=== PATIENT | male | born 1975 | race Two or more races ===

== ENCOUNTER 2022-12-07 15:12 | Emergency (ER) | payer MEDICAID, SELFPAY ==
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
[2022-12-07 15:37] VITALS: BP 145/92; PULSE 101; RESP 18; TEMP 36.8; O2SAT 96; BMI 33.4
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
[2022-12-07 17:34] VITALS: BP 134/72; PULSE 94; RESP 17; TEMP 37.1; O2SAT 97
--- NOTE | 2022-12-07 18:32 | ECG_ITS ---
Test Reason : SYNCOPE Blood Pressure : / mmHG Vent. Rate : 096 BPM Atrial Rate : 096 BPM P-R Int : 140 ms QRS Dur : 076 ms QT Int : 338 ms P-R-T Axes : 043 017 027 degrees QTc Int : 427 ms Normal sinus rhythm Normal ECG When compared with ECG of 06-APR-2014 23:01, ST no longer elevated in Anterior leads Referred By: Sonu Pyle Electronically Signed By:PORSHA TIRADO MD
[2022-12-07 18:59] LABS: MANUAL DIFF FLAG NO
[2022-12-07 19:00] LABS: Basophils Absolute Auto 0.1 X10*3/uL (0.0-0.2); Basophils Percent Auto 0.6 % (0-2); Eosinophils Percent Auto 0.3 % (0-4); Hematocrit 42.6 % (42.0-52.0); Hemoglobin 14.7 g/dl (14.0-18.0); Imm Gran Abs Auto 0.03 X10*3/uL (0.00-0.03); Imm Gran Pct Auto 0.3 % (0.0-0.4); Lymphocytes Absolute Auto 1.7 X10*3/uL (1.2-4.9); Lymphocytes Percent Auto 16.8 % (20-40); Mean Corpuscular HGB Conc 34.5 g/dl (31.0-36.0); Mean Corpuscular Volume 89.9 fL (80.0-98.0); Mean Platelet Volume 10.3 fL (9.4-12.4); Monocytes Absolute Auto 0.7 X10*3/uL (0.1-1.2); Monocytes Percent Auto 6.7 % (2-11); Neutrophils Absolute Auto 7.5 x10*3/uL (2.0-8.3); Neutrophils Percent Auto 75.3 % (45-73); Platelet Count 325 X10*3/uL (160-400); Red Blood Count 4.74 X10*6/uL (4.60-5.80); Red Cell Distribution Width 12.4 % (11.0-16.0)
[2022-12-07 19:12] LABS: Anion Gap 13 (12-20); Blood Urea Nitrogen 11 mg/dL (9-16); Calcium 9.6 mg/dL (8.4-10.2); Carbon Dioxide 25 mmol/L (22-29); Chloride 106 mmol/L (96-108); Estimated Glomerular Filt Rate > 60; Glucose Random 100 mg/dL (60-115); Potassium 4.2 mmol/L (3.3-5.1); Sodium 140 mmol/L (135-145)
[2022-12-07] MEDS: oxyCODONE HCl Immed Release 5 MG TABLET PO (19:15)
--- NOTE | 2022-12-07 19:30 | PC.NURSE ---
I assumed care of the pt at 1900. Pt is resting in bed at this time. A&Ox4, GCS 15. Pt as lacerations and swelling on the right side of the face and on his knuckles. Pt complaining of 8/10 pain, medicated per SEP.
[2022-12-07 19:46] LABS: Troponin-I High Sensitivity < 2.7 ng/L (<3.5-35.0)
== END 2022-12-07 20:33 | disposition home or self-care (01) ==
PROVIDERS: Emergency Provider Emergency Medicine
DX: S00.83XA Contusion of other part of head, initial encounter (principal); S60.222A Contusion of left hand, initial encounter; S60.221A Contusion of right hand, initial encounter; R51.9 Headache, unspecified; M54.2 Cervicalgia; R07.81 Pleurodynia; M25.561 Pain in right knee; V29.91XA Electric (assisted) bicycle rider (driver) (passenger) injured in unspecified traffic accident, initial encounter; Y93.9 Activity, unspecified; Y92.410 Unspecified street and highway as the place of occurrence of the external cause; Y99.9 Unspecified external cause status; Z79.899 Other long term (current) drug therapy
CPT/HCPCS: 36415; 70450; 70486; 71045; 72125; 73120; 73562; 80048; 84484; 85025; 93005; 99284; 99285

== ENCOUNTER 2023-04-17 15:28 | Outpatient (REF) | payer MEDICAID, SELFPAY | END 2023-04-17 15:29 | disposition home or self-care (01) | LOC: HO.HHCL 15:28 | PROVIDERS: Visit Provider Emergency Medicine | DX: R21 Rash and other nonspecific skin eruption (principal) | CPT/HCPCS: 36415; 86617; 86618 ==

== ENCOUNTER 2023-04-21 15:36 | Outpatient (REF) | payer MEDICAID, SELFPAY | END 2023-04-21 15:37 | disposition home or self-care (01) | LOC: HO.HHCL 15:36 | PROVIDERS: Visit Provider Nurse Practitioner Family | DX: Z13.89 Encounter for screening for other disorder (principal) ==

== ENCOUNTER 2023-09-02 15:05 | Outpatient (REF) | payer MEDICAID, SELFPAY ==
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
--- NOTE | ~2023-09-02 | XR_ITS ---
EXAMINATION: XR SHOULDER, RIGHT CLINICAL INFORMATION: Right arm/shoulder pain. COMPARISON: Radiograph right shoulder 08/12/2013. TECHNIQUE: Four views of the right shoulder. FINDINGS: The bones and soft tissues are normal. No fracture. Glenohumeral and acromioclavicular alignment is anatomic with normal joint space. No abnormal soft tissue calcifications. XR/XR shoulder RT min 2V IMPRESSION: Normal right shoulder.
--- NOTE | ~2023-09-02 | XR_ITS ---
EXAMINATION: XR CERVICAL SPINE CLINICAL INFORMATION: Neck pain. COMPARISON: CT cervical spine 12/07/2022. TECHNIQUE: 3 views of the cervical spine were obtained. FINDINGS: No evidence of acute compression deformity or subluxation. Moderate to severe intervertebral disc height loss at C5-C6 and C6-C7. [id number] uncovertebral hypertrophy/facet arthropathy at same levels. Evaluation of neural foraminal encroachment and central canal narrowing cannot be assessed with the provided views. No prevertebral soft tissue thickening. Included lung apices are clear. XR/XR cervical spine 3V IMPRESSION: 1. No acute compression deformity or malalignment. 2. Moderate to severe cervical spondylosis at C5-C6 and C6-C7.
== END 2023-09-02 15:06 | disposition home or self-care (01) ==
LOC: HO.HHCX 15:05
PROVIDERS: Visit Provider Internal Medicine
DX: M79.601 Pain in right arm (principal); S22.000D Wedge compression fracture of unspecified thoracic vertebra, subsequent encounter for fracture with routine healing; M54.10 Radiculopathy, site unspecified
CPT/HCPCS: 72040; 72070; 73030

== ENCOUNTER 2024-09-11 19:00 | Outpatient (REF) | payer MEDICAID, SELFPAY ==
--- NOTE | ~2024-09-11 | MR_ITS ---
EXAMINATION: MR CERVICAL SPINE WITHOUT CONTRAST CLINICAL INFORMATION: Neck pain. Radiculopathy. COMPARISON: Correlated to CT dated December 07, 2022. TECHNIQUE: MRI of the cervical spine was obtained using routine sequences without contrast. FINDINGS: Craniocervical junction is intact. No bone marrow STIR signal abnormality. Marginal osteophyte formation and disc desiccation, subchondral irregularity, C5-6 and C6-7 levels. Posterior marginal osteophyte formation C4-5, C5-6 and C6-7 levels. Mild buckling deformity of the dorsal aspect of the thecal sac at C6-7 likely related to ligamentum flavum hypertrophy. Grade 1 retrolisthesis C5-6 and C6-7 levels. Reverse curvature apex at C5. Cervical spinal cord signal is normal. C2-3: No disc herniation. No neuroforamina stenosis. C3-4: Broad-based disc osteophyte complex formation. Facet joint hypertrophy. No cord compression. Bilateral neuroforamina narrowing. C4-5: Broad-based disc osteophyte complex formation abutting the cord. No cord compression. Facet joint hypertrophy. Bilateral neuroforamina stenosis, right greater than the left side. C5-6: Broad-based disc osteophyte complex formation abutting the cord. No cord compression. Facet joint hypertrophy. Right neuroforamina and stenosis. C6-7: Broad-based disc osteophyte consummation. No cord compression. Bilateral neuroforamina narrowing/stenosis. C7-T1: No disc herniation. No neuroforamina stenosis. No prevertebral compartment hematoma, mass or fluid collection. Flow-void signal within the main vessels is normal. Left vertebral artery slightly dominant. Nonspecific prominent cervical lymph nodes. MR/MR cervical spine wo con IMPRESSION: Multilevel cervical spondylosis resulting in grade 1 retrolisthesis C5-6 and C6-7 levels reverse curvature apex at C5 and central spinal canal stenosis from C4 to C6 and bilateral neuroforamina narrowing more conspicuous at C4-5 and C6-7 levels. No cord compression, cord edema and or myelopathy. Electronically signed by: Aroldo Crabtree MD 09/12/2024 08:04 AM [facility]
--- OUTSIDE RECORDS SUMMARY | 2024-09-11 19:03 | XMS_ITS | Encounter Summary ---
Author Organization [employer] Address [address] [place] [address] Care Team Providers Care Safety Grooving Machine Operator Name Role Phone Felecia Good MD Primary Care Pro vider Reason for Visit * Reason Comments Med Refill Encounter Details Date Type Department Care Team (Late Contact Info) Description 01/01/2023 Refill [facility] [address], [place] [phone] Kenny Han, DANIA Rash Social History Tobacco Use Types Packs/Day Years Used Date Smoking Tobacco: Former Cigarettes Passive Smoke Exposure: Never Smokeless Tobacco: Never Alcohol Use Standard Drinks/Week Comments Never 0 (1 standard drink = 0.6 oz pur e alcohol) Depression Answer Date Recorded Patient Health Questionnaire-9 Score 16 12/09/2022 Depression Answer Date Recorded Patient Health Questionnaire-2 Score 2 12/09/2022 Sex and Gender Information Value Date Recorded Sex Assigned at Male 05/12/2022 10:18 AM EDT Legal Sex Male 10:18 AM EDT Gender Identity Male 05/12/2022 10:18 AM EDT Sexual Orientation Choose not to disclose 2021 10:18 AM EDT COVID-19 Exposure Response Date Recorded In the last 10 days, have yo u been in contact with someone who was confirmed or suspected to have Coronavirus/COVID-19? No / Unsure 12/09/2022 9:13 AM EDT documented as of this encounter Plan of Treatment Upcoming Encounters Date Type Department Care Team ([facility] Contact Info) Description 11/02/2024 2:15 PM EDT Office Visit [facility] [address], [place] [phone] Felecia Good MD [address] [place] [address] documented as of this encounter Visit Diagnoses Diagnosis Rash Rash and other nonspecific skin eruption documented in this encounter Additional Health Concerns Assessment Noted Time PHQ-9 Depression Total Score: 16 12/09/ 023 9:23 AM EDT documented as of this encounter Care Teams Safety Grooving Machine Operator Relationship Specialty Start Date End Date Felecia Good MD [address] [place], [place] [phone] PCP - General Internal Medicine 12/05/22 documented as of this encounter
--- OUTSIDE RECORDS SUMMARY | 2024-09-11 19:03 | XMS_ITS | Encounter Summary ---
Author Organization [facility] Address [address] [place] [address] Care Team Providers Care Skid Strapper Name Role Phone Francine Andrews CERTIFIED SUBSTANCE ABUSE COUNSELOR Primary Care Provider [phone]- [phone] Felecia Good MD Primary Care Pro vider Encounter Details Date Type Department Care Team (Late st Contact Info) Description 11/20/2022 Abstract [facility] [address] [place] [address] Gaston Gongaris [address] [place] [address] Social History Tobacco Use Types Packs/Day Years Used Date Smoking Tobacco: Former Cigarettes Passive Smoke Exposure: Never Smokeless Tobacco: Never Alcohol Use Standard Drinks/Week Comments Never 0 (1 standard drink = 0.6 oz pur e alcohol) Sex and Gender Information Value Date Recorded [...] suspected to have Coronavirus/COVID-19? No / Unsure 11/17/2022 10:55 AM EDT documented as of this encounter Plan of Treatment Upcoming Encounters Date Type Department Care Team (Late Contact Info) Description 11/02/2024 2:15 PM EDT Office Visit [facility] [address] [place] [address] Felecia Good MD [address] [place], [place] [phone] documented as of this encounter Visit Diagnoses Not on filedocumented in this encounter Care Teams Skid Strapper Relationship Specialty Start Date End Date Francine Andrews FNP PCP - General Family Medicine 01/10/22 12/04/22 Felecia Good MD [address] [place] [phone] PCP - General Internal Medicine 12/05/22 documented as of this encounter
--- OUTSIDE RECORDS SUMMARY | 2024-09-11 19:03 | XMS_ITS | Clinical Summary ---
Author Organization [employer] Address 75 [facility] 7t [place] [address] Care Team Providers Care Housing Development Specialist Name Role Phone Felecia Good MD Primary Care Pro vider Allergies No known active allergies Medications Blood Pressure Monitor kitIndications: Syncope, unspecified syncope type,Primary hypertension Use as directed 3x/week 1 kit 12/10/19 23 Active fluocinolone (DermOtic) 0.01 % ear dropsIndication s:Chronic eczematous otitis externa of both ears Administer 5 drops into each ear 2 times daily. 30 mL 06/15/20 23 Active fluticasone-mike meterol (Advair) 230-21 MCG/ACT inhaler Inhale 2 puffs in the morning and at bedtime. Rinse mouth with water after use to reduce aftertaste and incidence of candidiasis. Do not swallow. 12 g 11 11/10/19 24 2024 Active naloxone (Narcan) 4 mg/0.1 mL nasal spray Administer 1 spray (4 mg) into affected nostril(s) if needed for opioid reversal. May repeat every 2-3 minutes if needed, alternating nostrils, until medical assistance becomes available. 2 each 2 11/10/19 24 2024 Active Blood Pressure kit 1 each 2 times daily. 1 kit 01/20/20 24 2024 Active divalproex (Depakote ER) 250 MG 24 hr tabletIndicatio ns:Schizophreni a, unspecified type (CMS/HCC) TAKE 1 TABLET BY MOUTH EVERY DAY, DO NOT BREAK, CRUSH, DISSOLVE OR CHEW 30 tablet 2 03/02/20 24 Active Ventolin HFA 108 (90 Base) MCG/ACT inhaler INHALE 2 PUFFS BY MOUTH EVERY 6 HOURS NEEDED FOR WHEEZING 18 g 3 05/30/20 24 Active traZODone (Desyrel) 50 MG tabletIndicatio ns:Schizophreni a, unspecified type (CMS/HCC) TAKE 1/2 TABLET BY MOUTH EVERY DAY AT BEDTIME 15 tablet 3 06/03/20 24 Active lisinopril 10 MG tablet TAKE 1 TABLET BY MOUTH EVERY DAY 90 tablet 08/02/19 25 Active naproxen (Naprosyn) 500 MG tablet TAKE 1 TABLET BY MOUTH TWICE DAILY 30 tablet 08/26/19 25 Active betamethasone valerate (Valisone) 0.1 % ointment APPLY TOPICALLY TO AFFECTED AREA(S) TWICE DAILY IN THE MORNING AND AT BEDTIME NEEDED FOR ITCHING 45 g 08/26/19 25 Active lidocaine (Lidoderm) 5 % patch Apply 1 patch topically Once per day. Remove & discard patch within 12 hours or as directed by MD. 30 patch 2 09/07/19 25 2025 Active gabapentin (Neurontin) 100 MG capsule Take 1 capsule (100 mg) by mouth if needed in the morning, at noon, and at bedtime (pain). 45 capsule 1 09/07/19 25 2025 Active acetaminophen (Tylenol) 500 MG tabletIndicatio ns:Necrosis of dental pulp Take 1 tablet (500 mg) by mouth every 6 (six) hours if needed for mild pain for up to 20 doses. 20 tablet 09/07/19 25 Active acetaminophen (Tylenol) 500 MG tabletIndicatio ns:Necrosis of dental pulp Take 1 tablet (500 mg) by mouth every 6 (six) hours if needed for mild pain for up to 20 doses. 20 tablet 07/14/19 24 2024 Discontinued(R eorder (will not trigger notification to Pharmacy)) betamethasone valerate (Valisone) 0.1 % ointment APPLY TOPICALLY TO AFFECTED AREA(S) TWICE DAILY IN THE MORNING AND AT BEDTIME NEEDED FOR ITCHING 45 g 05/27/20 24 2024 Discontinued(R eorder (will not trigger notification to Pharmacy)) naproxen (Naprosyn) 500 MG tablet TAKE 1 TABLET BY MOUTH TWICE DAILY 30 tablet 07/27/19 25 2024 Discontinued Active Problems Problem Noted Date Diagnosed Date Asthma 11/10/2023 Skin rash 11/10/2023 Obesity (BMI 30-39.9) 11/10/2023 Health care maintenance 11/10/2023 Radiculopathy 09/02/2023 Primary hypertension 12/09/2022 Assessment & Plan (12/09/2022 10:19 AM EDT): fairely controlled, needs to FU with PCP counseled to check BP at home at least twice per week and FU with PCP Acute otitis externa of right ear 12/09/2022 Assessment & Plan (12/09/2022 10:19 AM EDT): Keep the area clean and dry avoid poking in the ear use cortisporin TC ear drops x 1 week. Periodontal disease 11/05/2022 Dental calculus 11/05/2022 Schizophrenia 05/03/2013 Generalized anxiety disorder 02/22/2013 History of substance abuse 01/18/2013 Chronic back pain 12/07/2012 Resolved Problems Problem Noted Date Diagnosed Date Resolved Date Thoracic compression fracture 12/03/2012 11/10/2023 Assessment & Plan (09/02/2023 3:43 PM EST): Old. Order Xray Encounters Date Type Department Care Team Description 09/07/2024 9:20 AM EST Office Visit [facility] [address] [place] [address] Louie Mann MD Neck pain (Primary Dx); Necrosis of dental pulp; Cervical radiculopathy 08/26/2024 Refill [facility] [address] [place] [address] Loraine Taylor ANP 08/26/2024 Refill [facility] [address] [place] [address] Felecia Good MD 08/02/2024 Refill [facility] [address] [place] [address] Felecia Good MD 07/27/2024 Refill [facility] [address] [place] [address] Felecia Good MD from Last 3 Months Immunizations Name Administration Dates Next Due Hep B, Adolescent or Pediatric 03/21/2008,2007,08/16/2006 Influenza, IIV3, injectable 06/06/2014,1 ,06/06/2008,04/16 MMR 06/15/2007 Pneumococcal Polysaccharide PPSV23 08/13/2006 TD (adult), 2 Lf tetanus tox oid, preservative free, adsorbed 08/13/2006 Family History Medical History Relation Name Comments arm cancer Brother Prostate cancer Father CAD,depression,anxiety Mother Schizophrenia Mother's Brother colon ca -60s Mother's Brother Relation Name Status Comments Brother Father Mother Mother's Brother Social History Tobacco Use Types Packs/Day Years Used Date Smoking Tobacco: Former Cigarettes Passive Smoke Exposure: Past Smokeless Tobacco: Never Tobacco Cessation:Counseling Given: Not Answered Comments:Started tobacco smoking at 17 y of age and stopped at his 40 y of age -stopped 8 y ago, smoke for 23 y Used to smoke 13 cig a day . PQT calc a year 15 Alcohol Use Standard Drinks/Week Comments Never 0 (1 standard drink = 0.6 oz pur e alcohol) Depression Answer Date Recorded Patient Health Questionnaire-9 Score 2 11/10/2023 Patient Health Questionnaire-9 Score 2 11/10/2023 Last PHQ-9: Questionnaire Data Not on file 0 11/10/2023 Housing Stability Answer Date Recorded What is your housing situation today? I have goran lara 05/07/[address] you li ve. Do you have problems with any of the following? None of the above 05/07/2023 Food Insecurity Answer Date Recorded Within the past 12 months, y ou worried that your food would run out before you got money to buy more: Often true 05/07/2023 Within the past 12 months,th e food you bought just didn't last and you didn't have enough money to get more: Often true Transportation Answer Date Recorded In the past 12 months, has l ack of transportation kept you from medical appts, meetings, work or from getting things needed for daily living? Yes, it has kept me from non-medical meetings, work, or getting things that I need 04/20/2023 Utilities Answer Date Recorded In the past 12 months, has t he electric, gas, oil or water company threatened to shut off services in your home? No 05/07/2023 Depression Answer Date Recorded Patient Health Questionnaire-2 Score 1 11/10/2023 Sex and Gender Information Value Date Recorded Sex Assigned at Male 05/12/2022 10:18 AM EDT Legal Sex Male 10:18 AM EDT Gender Identity Male 05/12/2022 10:18 AM EDT Sexual Orientation Choose not to disclose 2021 10:18 AM EDT Last Filed Vital Signs Vital Sign Reading Time Taken Comments Blood Pressure 124/80 09/07/2024 9:14 AM EST Pulse 81 09/07/2024 9:14 AM EST Temperature 36.9 ??C (98.5 ??F) 09/07/2024 9:14 AM ES T Respiratory Rate 18 09/07/2024 9:14 AM EST Oxygen Saturation 98% 09/07/2024 9:14 AM EST Inhaled Oxygen Concentration - - Weight 125 kg (276 lb) 09/07/2024 9:14 AM EST Height 188 cm (6' 2 ) 01/20/2024 8:42 AM EDT Body Mass Index 35.44 01/20/2024 8:42 AM EDT Plan of Treatment Upcoming Encounters Date Type Department Care Team (Late st Contact Info) Description 11/02/2024 2:15 PM EDT Office Visit [facility] [address] [place] [phone] Felecia Good MD [address] [place] [address] Health Maintenance Due Date Last Done Comments CT Colonography 1975 Colonoscopy 1975 Colorectal Cancer Screening 1975 FIT DNA/Cologuard 1975 FIT 1975 FOBT 1975 HIV Screening 1975 Sigmoidoscopy 1975 Alcohol/Substance Use Screening 1987 Family Planning (PISQ) 1990 Hepatitis A Vaccines (1 of 2 - Risk 2-dose series) 1994 Hepatitis B Vaccines (1 of 3 - 19+ 3-dose series) 1994 03/21/2008, 10/18/2007, 08/16/2006 DTaP/Tdap/Td Vaccines (1 - Tdap) 08/14/2006 08/13/2006 Pneumococcal Vaccine: Pediatrics (0 to 5 Years) and At-Risk Patients (6 to 49) Years) (2 of 2 - PCV) 08/13/2007 08/13/2006 Dental Oral Exam 05/08/2023 11/05/2022 Dental Prophylaxis 05/08/2023 11/05/2022 Dental X-Ray: Bitewings 11/07/2023 11/05/2022 SDOH Screening 12/10/2023 12/09/2022 COVID-19 Vaccine (2 - season) 2024 08/17/2021 Influenza Vaccine (#1) 2024 4, 04/18/2010, 06/06/2008, Additional history exists Depression Screening 11/09/2024 11/10/2023, 11/10/19 24 Zoster Vaccines (1 of 2) 2025 Tobacco Screening 09/07/2025 09/07/2024 Lipid Panel 11/02/2025 11/02/2020 Dental X-Ray: Full Mouth 07/15/2026 07/14/2023, 10/12 RSV Patients and Patients Aged 60 years or older (1 - 1-dose 75+ series) 2050 Hepatitis C Screening Completed 11/02/2020 HIB Vaccines Aged Out No longer eligi ble based on patient's age to complete this topic HPV Vaccines Aged Out No longer eligi ble based on patient's age to complete this topic IPV Vaccines Aged Out No longer eligi ble based on patient's age to complete this topic Meningococcal Vaccine Aged Out No brendan altagracia eligible based on patient's age to complete this topic RSV under 20 months Aged Out No longe r eligible based on patient's age to complete this topic Rotavirus Vaccines Aged Out No longer eligible based on patient's age to complete this topic Procedures Procedure Name Priority Date/Time Associated Diagnosis Comments PANORAMIC RADIOGRAPHIC IMAGE Routine 07/14/2023 8:45 AM EST Necrosis of dental pulp PERIODIC ORAL EVALUATION - ESTABLISHED PATIENT Routine 11/05/2022 9:00 AM EDT PROPHYLAXIS - ADULT Routine 11/05/2022 8 :00 AM EDT Periodontal disease Dental calculus INTRAORAL - COMPLETE SERIES OF RADIOGRAPHIC IMAGES Routine 11/05/2022 8:00 AM EDT Periodontal disease Dental calculus ZZZ HISTORICAL HEPATITIS C AB W/REFL TO HCV RNA, QN, PCR Routine 11/02/2020 8:01 AM EDT LIPID PANEL, STANDARD Routine 11/02/2020 8:01 AM EDT from Last 3 Months or Most Recently Relevant to Health Maintenance Results * HEPATITIS C AB W/REFL TO HCV RNA, QN, PCR (11/02/2020 8:01 AM EDT) Pathologist [facility] HEPATITIS C ANTIBODY NON-REACT ALBERTO NON-REACT ALBERTO [facility] INDEX 0.03 <1.00 [facility] Comment: ?? HCV antibody was non-reactive. There is no laboratory ?? evidence of HCV infection. ?? In most cases, no further action is required. However, if recent HCV exposure is suspected, a test for HCV RNA (test code 98499) is suggested. ?? For additional information please refer to http://education.[employer]/faq/JHW19e9 (This link is being provided for informational/ educational purposes only.) ?? 11/02/2020 8:01 AM EDT us Historical Provider HISTORICAL/NON ORDERABLE LABS Final Result [facility] [address] * (ABNORMAL) LIPID PANEL, STANDARD (11/02/2020 8:01 AM EDT) Chol/HDLC Ratio 5.5(H) <5.0 (calc) [facility] Cholesterol, Total 188 <200 mg/dL [facility] HDL Cholesterol 34(L) > OR = 40 mg/dL [facility] LDL Cholesterol 134(H) mg/dL (calc) [facility] Comment: Reference range: <100 ?? Desirable range <100 mg/dL for primary prevention; ?? <70 mg/dL for patients with CHD or diabetic patients ?? with > or = 2 CHD risk factors. ?? LDL-C is now calculated using the J Carlos ?? calculation, which is a validated novel method providing ?? better accuracy than the Friedewald equation in the ?? estimation of LDL-C. ?? Markie PONCE et al. ABBY. 2013;310(19): 9136-2854 ?? (http://education.[employer]/faq/FZX169) Non-HDL Cholesterol 154(H) <130 mg/dL (calc) [facility] Comment: For patients with diabetes plus 1 major ASCVD risk ?? factor, treating to a non-HDL-C goal of <100 mg/dL ?? (LDL-C of <70 mg/dL) is considered a therapeutic ?? option. Triglycerides 92 <150 mg/dL [facility] 11/02/2020 8:01 AM EDT us Historical Provider LAB BLOOD ORDERABLES Lissa guadarrama Result [facility] [address] from Last 3 Months or Most Recently Relevant to Health Maintenance [facility] Care Teams Housing Development Specialist Relationship Specialty Start Date End Date Felecia Good MD [address] [place] [phone] PCP - General Internal Medicine 12/05/22
--- OUTSIDE RECORDS SUMMARY | 2024-09-11 19:03 | XMS_ITS | Encounter Summary ---
Author Organization [employer] Address 75 [facility] 7t [place] [address] Care Team Providers Care Accounts Payable Processor Name Role Phone Felecia Good MD Primary Care Pro vider Reason for Visit * Reason Comments Med Refill Encounter Details Date Type Department Care Team ([facility] st Contact Info) Description 05/07/2023 Refill [facility] [address] [place], [place] [phone] Francine Andrews FNP [address] [place] [address] Dept [place] [address] Pain Social History Tobacco Use Types Packs/Day Years Used Date Smoking Tobacco: Former Cigarettes Passive Smoke Exposure: Never Smokeless Tobacco: Never Alcohol Use Standard Drinks/Week Comments Never 0 (1 standard drink = 0.6 oz pur e alcohol) Depression Answer Date Recorded Patient Health Questionnaire-9 Score 16 12/09/2022 Housing Stability Answer Date Recorded What is [...] not to disclose 2021 10:18 AM EDT documented as of this encounter Plan of Treatment Upcoming Encounters Date Type Department Care Team (Late st Contact Info) Description 11/02/2024 2:15 PM EDT Office Visit [facility] [address] [place] [phone] Felecia Good MD [address] [place] [phone] documented as of this encounter Visit Diagnoses Diagnosis Pain Generalized pain documented in this encounter Additional Health Concerns Assessment Noted Time PHQ-9 Depression Total Score: 16 023 9:23 AM EDT documented as of this encounter Care Teams Accounts Payable Processor Relationship Specialty Start Date End Date Felecia Good MD [address] [place] [phone] PCP - General Internal Medicine 12/05/22 documented as of this encounter
--- OUTSIDE RECORDS SUMMARY | 2024-09-11 19:03 | XMS_ITS | Encounter Summary ---
Author Organization [employer] [facility] Address 75 [facility] 7t [place] [address] Care Team Providers Care Environmental Journalist Name Role Phone Francine Andrews PASTE MAKER Primary Care Provider +1- [phone] Felecia Good MD Primary Care Pro vider Encounter Details Date Type Department Care Team (Late st Contact Info) Description 11/18/2022 Abstract [facility] [address] [place] [address] Gaston Gongaris [address] [place] [address] Social History Tobacco Use Types Packs/Day Years [...] Description 11/02/2024 2:15 PM EDT Office Visit [facility] [address] [place] [address] Felecia Good MD [address] [place], [place] [phone] documented as of this encounter Visit Diagnoses Not on filedocumented in this encounter Care Teams Environmental Journalist Relationship Specialty Start Date End Date Franicne Andrews FNP PCP - General Family Medicine 01/10/22 12/04/22 Felecia Good MD [address] [place] [address] PCP - General Internal Medicine 12/05/22 documented as of this encounter
--- OUTSIDE RECORDS SUMMARY | 2024-09-11 19:03 | XMS_ITS | Encounter Summary ---
Author Organization [employer] Address [address] [facility] [address] 7t [place] [address] Care Team Providers Care Hydrography Teacher Name Role Phone Felecia Good MD Primary Care Pro vider Reason for Visit * Reason Comments Med Refill Encounter Details Date Type Department Care Team ([facility] st Contact Info) Description 08/26/2024 Refill [facility] [address] [place], [place] [phone] Loraine Taylor, ANP [address] [place], [place] [phone] Social History Tobacco Use Types Packs/Day Years Used Date Smoking Tobacco: Former Cigarettes Passive Smoke Exposure: Past Smokeless Tobacco: Never Comments:Started tobacco smo aroldo at 17 y of age and stopped [...] Description 11/02/2024 2:15 PM EDT Office Visit [facility] [address] [place] [address] Felecia Good MD [address] [place] [address] documented as of this encounter Visit Diagnoses Not on filedocumented in this encounter Additional Health Concerns Assessment Noted Time PHQ-9 Depression Total Score: 2 11/10/19 24 10:19 AM EDT documented as of this encounter Care Teams Hydrography Teacher Relationship Specialty Start Date End Date Felecia Good MD [address] [place] [phone] PCP - General Internal Medicine 12/05/22 documented as of this encounter
--- OUTSIDE RECORDS SUMMARY | 2024-09-11 19:03 | XMS_ITS | Encounter Summary ---
Author Organization [employer] [facility] Address 75 [facility] 7t [place] [address] Care Team Providers Care Deflash And Wash Operator Name Role Phone Francine Andrews SENIOR JAVASCRIPT ENGINEER Primary Care Provider +1- [phone] Felecia Good MD Primary Care Pro vider Encounter Details Date Type Department Care Team (Late st Contact Info) Description 10/03/2022 Orders Only [facility] [address] [place], [place] [phone] Marlen Batista LPN Social History Tobacco Use Types Packs/Day Years Used Date Smoking Tobacco: Never Assessed Sex and Gender Information Value Date Recorded [...] Office Visit [facility] [address] [place], [place] [phone] Felecia Good MD [address] [place], [place] [phone] documented as of this encounter Procedures Procedure Name Priority Date/Time Associated Diagnosis Comments HIGH SENSITIVITY TROPONIN I Routine 12/07/2022 6:55 PM EDT CBC WITH AUTO DIFFERENTIAL Routine 12/07/2022 6:55 PM EDT BASIC METABOLIC PANEL Routine 12/07/2022 6:55 PM EDT documented in this encounter Results * High Sensitivity Troponin I (12/07/2022 6:55 PM EDT) TROPONIN I HIGH SENSITIVITY <2.7 <3.5 - 35.0 ng/L [facility] Comment:The Booth high sens itivity Troponin-I results should beused in conjunction with other diagnostic information suchas ECG, clinical observations and information, and patientsymptoms to aid in the diagnosis of [place]. 12/07/2022 6:55 PM EDT 12/07/2022 6:57 PM EDT [facility] External Provider LAB BLO OD ORDERABLES Final Result [facility] [address] [place] [phone] * Basic Metabolic Panel (12/07/2022 6:55 PM EDT) Sodium 140 135 - 145 mmol/L [facility] Potassium 4.2 3.3 - 5.1 mmol/L [facility] Chloride 106 96 - 108 mmol/L [facility] Carbon Dioxide 25 22 - 29 mmol/L [facility] Anion Gap 13 12 - 20 [facility] Urea Nitrogen (BUN) 11 9 - 16 mg/dL [facility] Creatinine, Serum 1.03 0.5 - 1.4 mg/dL [facility] Creatinine Clr Calc Pharmacy 121.0 [facility] Comment:eGFR (calculated fro m the MDRD study equation) and eCrCl(calculated from the Cockcroft-Gault equation) are based ondifferent parameters and may not yield comparable results.If eCrCl result is absurd, please check patient'sheight/weight. Estimated Glomerular Filt Rate >60 [facility] Comment:NOTE: For -Am erican individuals, multiply the result by 1.210.Chronic Kidney Disease: Estimated GFR < 60 mL/min/[id number] Kidney Disease: Estimated GFR < 15 mL/min/1.73m2 Glucose 100 60 - 115 mg/dL [facility] Calcium 9.6 8.4 - 10.2 mg/dL [facility] 12/07/2022 6:55 PM EDT 12/07/2022 6:57 PM EDT us [facility] External Provider LAB BLO OD ORDERABLES Final Result [facility] [address] [place] [address] [phone] * (ABNORMAL) CBC auto differential (12/07/2022 6:55 PM EDT) White Blood Count 10.0 4.8 - 10.8 X10*3/uL [facility] Red Blood Count 4.74 4.60 - 5.80 X10*6/uL [facility] Hemoglobin 14.7 14.0 - 18.0 g/dl [facility] Hematocrit 42.6 42.0 - 52.0 % [facility] Mean Corpuscular Volume 89.9 80.0 - 98.0 fL [facility] Mean Corpuscular Hemoglobin 31.0 27.0 - 33.0 pg [facility] Mean Corpuscular HGB Conc 34.5 31.0 - 36.0 g/dl [facility] Red Cell Distribution Width 12.4 11.0 - 16.0 % [facility] Platelet Count 325 160 - 400 X10*3/uL [facility] Mean Platelet Volume 10.3 9.4 - 12.4 fL [facility] Neutrophils Percent Auto 75.3(H) 45 - 73 % [facility] Imm Gran Pct Auto 0.3 0.0 - 0.4 % [facility] Lymphocytes Percent Auto 16.8(L) 20 - 40 % [facility] Monocytes Percent Auto 6.7 2 - 11 % [facility] Eosinophils Percent Auto 0.3 0 - 4 % [facility] Basophils Percent Auto 0.6 0 - 2 % [facility] NRBC Pct Auto 0.0 0.0 - 0.2 /100WBC [facility] Neutrophils Absolute Auto 7.5 2.0 - 8.3 x10*3/uL [facility] Imm Gran Abs Auto 0.03 0.00 - 0.03 X10*3/uL [facility] Lymphocytes Absolute Auto 1.7 1.2 - 4.9 X10*3/uL [facility] Monocytes Absolute Auto 0.7 0.1 - 1.2 X10*3/uL [facility] Eosinophils Absolute Auto 0.0 0.0 - 0.4 X10*3/uL [facility] Basophils Absolute Auto 0.1 0.0 - 0.2 X10*3/uL [facility] NRBC Abs Auto 0.000 0.0 - 0.012 X10*3/uL [facility] 12/07/2022 6:55 PM EDT 12/07/2022 6:57 PM EDT us [facility] External Provider LAB BLO OD ORDERABLES Final Result [facility] [address] [place] [address] [phone] documented in this encounter Visit Diagnoses Not on filedocumented in this encounter Care Teams Deflash And Wash Operator Relationship Specialty Start Date End Date Francine Andrews FNP PCP - General Family Medicine 01/10/22 12/04/22 Felecia Good MD [address] [place] [address] PCP - General Internal Medicine 12/05/22 documented as of this encounter
--- OUTSIDE RECORDS SUMMARY | 2024-09-11 19:03 | XMS_ITS | Encounter Summary ---
Author Organization [employer] [facility] Address 75 [facility] 7t [place] [address] Care Team Providers Care Dermatology Physician Assistant Name Role Phone Francine Andrews [facility] Primary Care Provider +1- [phone] Felecia Good MD Primary Care Pro vider Reason for Visit * Reason Onset Date Comments triage 07/15/2022 Encounter Details Date Type Department Care Team (Late Contact Info) Description 07/15/2022 Telephone [facility] [address] [place] [address] Francine Andrews FNP [address] [place] [address] Dept [place] [address] triage Social History Tobacco Use Types Packs/Day Years [...] suspected to have Coronavirus/COVID-19? No / Unsure 06/23/2022 4:00 PM EST documented as of this encounter Plan of Treatment Upcoming Encounters Date Type Department Care Team (Late Contact Info) Description 11/02/2024 2:15 PM EDT Office Visit [facility] [address] [place], [place] [phone] Felecia Good MD [address] [place] [address] documented as of this encounter Visit Diagnoses Not on filedocumented in this encounter Care Teams Dermatology Physician Assistant Relationship Specialty Start Date End Date Francine Andrews FNP PCP - General Family Medicine 01/10/22 12/04/22 Felecia Good MD [address] [place] [address] PCP - General Internal Medicine 12/05/22 documented as of this encounter
--- OUTSIDE RECORDS SUMMARY | 2024-09-11 19:03 | XMS_ITS | Encounter Summary ---
Author Organization [employer] [facility] Address [address] [facility] 7t [place] [address] Care Team Providers Care Coffin Maker Name Role Phone Felecia Good MD Primary Care Pro vider Reason for Referral * Consultation (Urgent) - Authorized Specialty Diagnoses / Procedures Referred By Hai t Referred To Contact Pain Medicine Diagnoses Neck pain Cervical radiculopathy Louie Mann MD [address] [place] [address] Phone: tel: fax: [address] Phone: tel: fax: Referral ID Status Reason Start Date Expiration Date Visits Requested Visits Authorized [id number] Authorized Specialty Services Required 09/07/2024 09/07/2025 6 6 * Imaging (Routine) - Authorized Specialty Diagnoses / Procedures Referred By Contac t Referred To Contact Radiology Diagnoses Neck pain Cervical radiculopathy Procedures MR Cervical Spine w/o Contrast Louie Mann MD [address] [place] [address] Phone: tel: fax: [address] Phone: tel: fax: Referral ID Status Reason Start Date Expiration Date V isits Requested Visits Authorized [id number] Authorized 09/07/2024 09/07/2025 1 1 Reason for Visit * Reason Comments Neck Pain Encounter Details Date Type Department Care Team (Latest Contact Info) Description 09/07/2024 9:20 AM EST Office Visit [facility] [address] [place] [address] Louie Mann MD [address] [place] [address] Neck pain (Primary Dx); Necrosis of dental pulp; Cervical radiculopathy Social History Tobacco Use Types Packs/Day Years [...] your housing situation today? I have goran jane 05/07/[address] you li [...] AM EDT documented as of this encounter Last Filed Vital Signs Vital Sign Reading Time Taken Comments Blood Pressure 124/80 09/07/2024 9:14 AM EST Pulse 81 09/07/2024 9:14 AM EST Temperature 36.9 ??C (98.5 ??F) 09/07/2024 9:14 AM ES T Respiratory Rate 18 09/07/2024 9:14 AM EST Oxygen Saturation 98% 09/07/2024 9:14 AM EST Inhaled Oxygen Concentration - - Weight 125 kg (276 lb) 09/07/2024 9:14 AM EST Height - - Body Mass Index 35.44 01/20/2024 8:42 AM EDT documented in this encounter Progress Notes * Louie Mann MD - 09/07/2024 9:20 AM EST Subjective Patient ID: Mushtaq Canchola is a 49 y.o. male. Second Ride Fare Collector: Jean FLORES Mushtaq had recurrence of pain in left neck and down left UE with tingling sensation in neck and UE. Neck pain is worse with ROM of neck. No recent injury, UE weakness. Tried naproxen, mother's Tramadol with no relief. Right-handed. Mushtaq was seen in [facility] 09/02/2023 for > 7 year h/o neck pain related to trauma with left UE radiculopathy s/p trauma. Prescribed gabapentin, NCS ordered, referred to occupational therapy. NCS results not available at this time. Cervical spine x-rays done 09/02/2023: IMPRESSION: 1. No acute compression deformity or malalignment. 2. Moderate to severe cervical spondylosis at C5-C6 and C6-C7. Left shoulder x-rays 09/02/2023: IMPRESSION: Normal right shoulder. Lives with . Former smoker. Not employed. Patient Active Problem List Diagnosis Periodontal disease Dental calculus Primary hypertension Acute otitis externa of right ear Chronic back pain Generalized anxiety disorder History of substance abuse (CMS/HCC) Schizophrenia (CMS/[facility]) Radiculopathy Asthma Skin rash Obesity (BMI 30-39.9) Health care maintenance The following portions of the chart were reviewed this encounter and updated as appropriate: Tobacco Allergies Meds Problems Med Hx Surg Hx Fam Hx Review of Systems Constitutional: Negative for fever. Respiratory: Negative for shortness of breath. Cardiovascular: Negative for chest pain. Gastrointestinal: Negative for abdominal pain. Musculoskeletal: Positive for neck pain. Skin: Negative for rash. Neurological: Positive for numbness. Negative for headaches. Objective Physical Exam Constitutional: Appearance: Normal appearance. HENT: Nose: Nose normal. Eyes: Conjunctiva/sclera: Conjunctivae normal. Pupils: Pupils are equal, round, and reactive to light. Cardiovascular: Rate and Rhythm: Normal rate and regular rhythm. Pulses: Radial pulses are 2+ on the left side. Heart sounds: No murmur heard. Pulmonary: Effort: Pulmonary effort is normal. Breath sounds: Normal breath sounds. Musculoskeletal: General: Normal range of motion. Cervical back: No tenderness. Comments: Tenderness over left lower neck. Pain in left neck and left shoulder with ROM of left shoulder. Skin: Findings: No rash. Neurological: Mental Status: He is alert. Motor: Motor function is intact. Gait: Gait is intact. Comments: Decreased sensation all left finger pads. Psychiatric: Mood and Affect: Mood normal. Behavior: Behavior normal. Procedures Assessment/Plan Diagnoses and all orders for this visit: Neck pain Refilled gabapentin and Tylenol. Prtescribed lidocaine patches. MRI cervical spine ordered. Will call pt with report. Referred to pain management. Go to ED for severe pain or upper extremity weakness. - acetaminophen (Tylenol) 500 MG tablet; Take 1 tablet (500 mg) by mouth every 6 (six) hours if needed for mild pain for up to 20 doses. Cervical radiculopathy Other orders - lidocaine (Lidoderm) 5 % patch; Apply 1 patch topically Once per day. Remove & discard patch within 12 hours or as directed by MD. - gabapentin (Neurontin) 100 MG capsule; Take 1 capsule (100 mg) by mouth if needed in the morning,at noon, and at bedtime (pain). documented in this encounter Plan of Treatment Upcoming Encounters Date Type Department Care Team (Late st Contact Info) Description 11/02/2024 2:15 PM EDT Office Visit [facility] [address] [place] [address] Felecia Good MD [address] [place] [phone] Scheduled Orders Name Type Priority Associated Diagnoses Orde r Schedule MR Cervical Spine w/o Contrast Imaging Routine Neck pain Cervical radiculopathy Expected: 09/07/2024, Expires: 09/07/2025 Scheduled Referrals Name Type Priority Associated Diagnoses Orde r Schedule Referral to Pain Medicine Outpatient Referral Urgent Neck pain Cervical radiculopathy Expected: 09/07/2024 (Approximate), Expires: 09/07/2025 documented as of this encounter Visit Diagnoses Diagnosis Neck pain- Primary Cervicalgia Necrosis of dental pulp Cervical radiculopathy Brachial neuritis or radiculitis nos documented in this encounter Additional Health Concerns Assessment Noted Time PHQ-9 Depression Total Score: 2 11/10/19 24 10:19 AM EDT documented as of this encounter Care Teams Coffin Maker Relationship Specialty Start Date End Date Felecia Good MD [address] [place] [phone] PCP - General Internal Medicine 12/05/22 documented as of this encounter
--- OUTSIDE RECORDS SUMMARY | 2024-09-11 19:03 | XMS_ITS | Encounter Summary ---
Author Organization [employer] Address [address] 7[address] [place] [address] Care Team Providers Care Senior Sharepoint Developer Name Role Phone Felecia Good MD Primary Care Pro vider Encounter Details Date Type Department Care Team (Late st Contact Info) Description 04/22/2023 Orders Only [facility] [address] [place] [address] Louie Mann MD [address] [place] [address] Rash (Primary Dx) Social History Tobacco Use Types Packs/Day Years Used Date Smoking Tobacco: Former Cigarettes Passive Smoke Exposure: Never Smokeless Tobacco: Never Alcohol Use Standard Drinks/Week Comments Never 0 (1 standard drink = 0.6 oz pur e alcohol) Depression Answer Date Recorded Patient Health Questionnaire-9 Score 16 12/09/2022 Housing Stability Answer Date Recorded What is your housing situation today? I have gorannataliia lara 04/20/[address] you li ve. Do you have problems with any of the following? None of the above 04/20/2023 Food Insecurity Answer Date Recorded Within the past 12 months, y ou worried that your food would run out before you got money to buy more: Often true 04/20/2023 Within the past 12 months,th e food you bought just didn't last and you didn't have enough money to get more: Often true 03/2023 Transportation Answer Date Recorded In the past [...] shut off services in your home? No 04/20/2023 Depression Answer Date Recorded Patient Health Questionnaire-2 [...] Description 11/02/2024 2:15 PM EDT Office Visit [facility] [address] [place] [address] Felecia Good MD [address] [place] [address] documented as of this encounter Visit Diagnoses Diagnosis Rash- Primary Rash and other nonspecific skin eruption documented in this encounter Additional Health Concerns Assessment Noted Time PHQ-9 Depression Total Score: 16 023 9:23 AM EDT documented as of this encounter Care Teams Senior Sharepoint Developer Relationship Specialty Start Date End Date Felecia Good MD [address] [place] [phone] PCP - General Internal Medicine 12/05/22 documented as of this encounter
--- OUTSIDE RECORDS SUMMARY | 2024-09-11 19:03 | XMS_ITS | Encounter Summary ---
Author Organization [employer] [facility] Address [address] 7t [place] [address] Care Team Providers Care Day Light Relief Operator Name Role Phone Felecia Good MD Primary Care Pro vider Reason for Visit * Reason Comments Med Refill Encounter Details Date Type Department Care Team (Late Contact Info) Description 01/09/2023 Refill [facility] [address] [place], [place] [phone] Kenny Han FNP Rash Social History Tobacco Use Types Packs/Day [...] Description 11/02/2024 2:15 PM EDT Office Visit [facility] [address] [place], [place] [phone] Felecia Good MD [address] [place], [place] [phone] documented as of this encounter Visit Diagnoses Diagnosis Rash Rash and other nonspecific skin eruption documented in this encounter Additional Health Concerns Assessment Noted Time PHQ-9 Depression Total Score: 16 023 9:23 AM EDT documented as of this encounter Care Teams Day Light Relief Operator Relationship Specialty Start Date End Date Felecia Good MD [address] [place] [address] PCP - General Internal Medicine 12/05/22 documented as of this encounter
--- OUTSIDE RECORDS SUMMARY | 2024-09-11 19:03 | XMS_ITS | Encounter Summary ---
Author Organization [employer] Address [address] [facility] 7t [place] [address] Care Team Providers Care Team Otr Truck Driver Name Role Phone Felecia Good MD Primary Care Pro vider Reason for Visit * Reason Comments Med Refill Encounter Details Date Type Department Care Team ([facility] st Contact Info) Description 08/26/2024 Refill [facility] [address] [place], [place] [phone] Felecia Good MD [address] [place] [address] Social History Tobacco Use Types Packs/Day Years [...] Description 11/02/2024 2:15 PM EDT Office Visit [facility] [address] [place] [phone] Felecia Good MD [address] [place] [address] documented as of this encounter Visit Diagnoses Not on filedocumented in this encounter Additional Health Concerns Assessment Noted Time PHQ-9 Depression Total Score: 2 11/10/19 24 10:19 AM EDT documented as of this encounter Care Teams Team Otr Truck Driver Relationship Specialty Start Date End Date Felecia Good MD [address] [place] [address] [phone] PCP - General Internal Medicine 12/05/22 documented as of this encounter
--- OUTSIDE RECORDS SUMMARY | 2024-09-11 19:03 | XMS_ITS | Encounter Summary ---
Author Organization [employer] Address [address] [facility] 7t [place] [address] Care Team Providers Care Dope Weigh Operator Name Role Phone Felecia Good MD Primary Care Pro vider Reason for Visit * Reason Comments Med Refill Encounter Details Date Type Department Care Team ([facility] st Contact Info) Description 11/23/2023 Refill [facility] [address] [place] [address] Felecia Good MD [address] [place] [address] Social History Tobacco Use Types Packs/Day Years Used Date Smoking Tobacco: Former Cigarettes Passive Smoke Exposure: Never Smokeless Tobacco: Never Comments:Started tobacco smo aroldo [...] Description 11/02/2024 2:15 PM EDT Office Visit [facility] [address] [place] [address] Felecia Good MD [address] [place] [address] documented as of this encounter Visit Diagnoses Not on filedocumented in this encounter Additional Health Concerns Assessment Noted Time PHQ-9 Depression Total Score: 2 11/10/19 24 10:19 AM EDT documented as of this encounter Care Teams Dope Weigh Operator Relationship Specialty Start Date End Date Felecia Good MD [address] [place] [address] [phone] PCP - General Internal Medicine 12/05/22 documented as of this encounter
== END 2024-09-11 19:01 | disposition home or self-care (01) ==
LOC: HO.MRI 19:00
PROVIDERS: PCP Student in an Organized Health Care Education/Training Program; Visit Provider Emergency Medicine
DX: M54.2 Cervicalgia (principal); M54.12 Radiculopathy, cervical region
CPT/HCPCS: 72141

== ENCOUNTER → 2024-09-11 19:03 | Outpatient (BNV) | payer MEDICAID, SELFPAY | PROVIDERS: PCP Student in an Organized Health Care Education/Training Program; Visit Provider Radiology Diagnostic Radiology | DX: M54.2 Cervicalgia (principal); M54.12 Radiculopathy, cervical region | CPT/HCPCS: 72141 ==

== ENCOUNTER 2025-06-12 14:09 | Outpatient (REF) | payer MEDICAID, SELFPAY ==
--- NOTE | ~2025-06-12 | XR_ITS ---
EXAMINATION: XR LUMBOSACRAL SPINE CLINICAL INFORMATION: pain COMPARISON: May 10, 2019 TECHNIQUE: Three views of the lumbosacral spine. FINDINGS: There are 5 nonrib-bearing lumbar segments. Vertebral body height and alignment is preserved. Disc spaces are preserved. There is subtle retrolisthesis that L3-4 and L4-5, similar to the prior. Small endplate osteophytes are noted anterior superior L3 and L5, slightly increased. XR/XR lumbar spine 2-3V IMPRESSION: Stable lumbar spine x-ray Electronically signed by: Canelo Harris MD 06/12/2025 02:49 PM EST
--- OUTSIDE RECORDS SUMMARY | 2025-06-12 13:20 | XMS_ITS | Encounter Summary ---
Author Organization [employer] Address [address] [facility] 7t [place] [address] Care Team Providers Care Commissary Worker Name Role Phone Felecia Good MD Primary Care Pro vider Reason for Referral * Consultation (Routine) - Pending Review Specialty Diagnoses / Procedures Referred By Contswathi t Referred To Contact Physical Therapy Diagnoses Chronic low back pain, unspecified back pain laterality, unspecified whether sciatica present Yancy Read NP [address] [place] [phone] Phone: tel: fax: Referral ID Status Reason Start Date Expiration Date Visits Requested Visits Authorized [id number] Pending Review Specialty Services Required 06/12/2025 06/12/2026 1 1 Reason for Visit * Reason Comments Back Pain Encounter Details Date Type Department Care Team (Late st Contact Info) Description 06/12/2025 1:20 PM EST Office Visit [facility] [address] [place] [address] [phone] Chronic low back pain, unspecified back pain laterality, unspecified whether sciatica present (Primary Dx); Necrosis of dental pulp Social History Tobacco Use Types Packs/Day Years [...] Sign Reading Time Taken Comments Blood Pressure 136/79 06/12/2025 1:23 PM EST Pulse 79 06/12/2025 1:23 PM EST Temperature 36.8 C (98.2 F) 06/12/2025 1:23 PM EST Respiratory Rate 18 06/12/2025 1:23 PM EST Oxygen Saturation 97% 06/12/2025 1:23 PM EST Inhaled Oxygen Concentration - - Weight 127 kg (280 lb) 06/12/2025 1:23 PM EST Height - - Body Mass Index 35.95 03/17/2025 9:55 AM EDT documented in this encounter Plan of Treatment Upcoming Encounters Date Type Department Care Team (Late st Contact Info) Description 06/16/2025 10:00 AM EST Office Visit [address] [phone] Martin Tanner MD [address] [place] [address] [phone] 07/04/2025 9:15 AM EST Office Visit [address] [phone] Felecia Good MD [address] [place] [address] [phone] Scheduled Referrals Name Type Priority Associated Diagnoses Orde r Schedule Referral to Physical Therapy Outpatient Referral Routine Chronic low back pain, unspecified back pain laterality, unspecified whether sciatica present Expected: 06/12/2025 (Approximate), Expires: 06/12/2026 documented as of this encounter Procedures Procedure Name Priority Date/Time Associated Diagnosis Comments XR LUMBAR SPINE 2-3 VIEWS Routine 06/12/2025 2:35 PM EST Chronic low back pain, unspecified back pain laterality, unspecified whether sciatica present documented in this encounter Results * XR Lumbar Spine 2-3 Views (06/12/2025 2:35 PM EST) Anatomical Region Laterality Modality Spine, L-spine Radiographic Madina ging 06/12/2025 2:35 PM EST Narrative 06/12/2025 2:52 PM EST [address] [address] XRay Report Signed Patient: Mushtaq Canchola MR#: [id number] : 1975 Acct:[id number] Age/Sex: 49 / M ADM Date: 06/12/25 Loc: HO.HHCX Attending Dr: Yancy Read Ordering Physician: Yancy Read Date of Service: 06/12/25 Procedure(s): XR lumbar spine 2-3V Accession Number(s): [id number] cc: Yancy Read Reason for Exam: pain EXAMINATION: XR LUMBOSACRAL SPINE CLINICAL INFORMATION: pain COMPARISON: May 10, 2019 TECHNIQUE: Three views of the lumbosacral spine. FINDINGS: There are 5 nonrib-bearing lumbar segments. Vertebral body height and alignment is preserved. Disc spaces are preserved. There is subtle retrolisthesis that L3-4 and L4-5, similar to the prior. Small endplate osteophytes are noted anterior superior L3 and L5, slightly increased. XR/XR lumbar spine 2-3V IMPRESSION: Stable lumbar spine x-ray Electronically signed by: Canelo Harris MD 06/12/2025 02:49 PM EST Dictated By: Canelo Harris MD Signed By: <Electronically signed by Canelo Harris MD in OV> 06/12/25 1449 DD/ 1435 TD/TT: 06/12/25 1439 Camp Maintenance Supervisor: Procedure Note Donotuseinterpreter, Image - 06/12/[address] [address] XRay Report Signed Patient: Mushtaq Canchola AMR#: [id number] : 1975Acct:[id number] Age/Sex: 49 / MADM Date: 06/12/25 Loc: HO.HHCX Attending Dr: Yancy Read Ordering Physician: Yancy Read Date of Service: 06/12/25 Procedure(s): XR lumbar spine 2-3V Accession Number(s): [id number] cc: Yancy Read Reason for Exam: pain EXAMINATION: XR LUMBOSACRAL SPINE CLINICAL INFORMATION: pain COMPARISON: May 10, 2019 TECHNIQUE: Three views of the lumbosacral spine. FINDINGS: There are 5 nonrib-bearing lumbar segments. Vertebral body height and alignment is preserved. Disc spaces are preserved. There is subtle retrolisthesis that L3-4 and L4-5, similar to the prior. Small endplate osteophytes are noted anterior superior L3 and L5, slightly increased. XR/XR lumbar spine 2-3V IMPRESSION: Stable lumbar spine x-ray Electronically signed by: Canelo Harris MD 06/12/2025 02:49 PM EST RP Dictated By: Canelo Harris MD Signed By: <Electronically signed by Canelo Harris MD in OV> 06/12/25 1449 DD/ 1435 TD/TT: 06/12/25 143 Camp Maintenance Supervisor: Yancy Read HOSPICE VOLUNTEER COORDINATOR IMG XR PROCEDURES Final Result documented in this encounter Visit Diagnoses Diagnosis Chronic low back pain, unspecified back pain laterality, unspecified whether sciatica present- Primary Necrosis of dental pulp documented in this encounter Additional Health Concerns Assessment Noted Time PHQ-9 Depression Total Score: 2 11/10/19 24 10:19 AM EDT documented as of this encounter Care Teams Commissary Worker Relationship Specialty Start Date End Date Felecia Good MD [address] [place] [phone] PCP - General Internal Medicine 12/05/22 documented as of this encounter
--- OUTSIDE RECORDS SUMMARY | 2025-06-12 17:33 | XMS_ITS | Encounter Summary ---
Author Organization [employer] Address [address] 7t [place] [address] Care Team Providers Care Electrocardiographic Technician Name Role Phone Felecia Good MD Primary Care Pro vider Reason for Visit * Reason Comments Med Refill Encounter Details Date Type Department Care Team ([facility] st Contact Info) Description 07/31/2023 Refill [facility] [address] [place], [place] [phone] Louie Mann MD [address] [place], [place] [phone] Social History Tobacco Use Types Packs/Day Years [...] Description 06/16/2025 10:00 AM EST Office Visit [facility] [address] [place] [phone] Martin Tanner MD [address] [place] [phone] 07/04/2025 9:15 AM EST Office Visit [facility] [address] [place] [address] Felecia Good MD [address] [place] [phone] documented as of this encounter Visit Diagnoses Not on filedocumented in this encounter Additional Health Concerns Assessment Noted Time PHQ-9 Depression Total Score: 16 023 9:23 AM EDT documented as of this encounter Care Teams Electrocardiographic Technician Relationship Specialty Start Date End Date Felecia Good MD [address] [place] [phone] PCP - General Internal Medicine 12/05/22 documented as of this encounter
--- OUTSIDE RECORDS SUMMARY | 2025-06-12 17:33 | XMS_ITS | Encounter Summary ---
Author Organization [employer] Address [address] [facility] 7t [place] [address] Care Team Providers Care Aircraft Communicator Name Role Phone Felecia Good MD Primary Care Pro vider Reason for Visit * Reason Comments Med Refill Encounter Details Date Type Department Care Team ([facility] st Contact Info) Description 02/25/2025 Refill [facility] [address] [place], [place] [phone] Felecia Good MD [address] [place] [address] Social History Tobacco Use Types Packs/Day Years [...] Description 06/16/2025 10:00 AM EST Office Visit [facility] [address] [place] [phone] Martin Tanner MD [address] [place] [address] 07/04/2025 9:15 AM EST Office Visit [facility] [address] [place] [phone] Felecia Good MD [address] [place] [address] documented as of this encounter Visit Diagnoses Not on filedocumented in this encounter Additional Health Concerns Assessment Noted Time PHQ-9 Depression Total Score: 2 11/10/19 24 10:19 AM EDT documented as of this encounter Care Teams Aircraft Communicator Relationship Specialty Start Date End Date Felecia Good MD [address] [place] [phone] PCP - General Internal Medicine 12/05/22 documented as of this encounter
--- OUTSIDE RECORDS SUMMARY | 2025-06-12 17:33 | XMS_ITS | Encounter Summary ---
Author Organization [employer] Address [address] [facility] 7t [place] [address] Care Team Providers Care Aircraft Cabin Cleaner Name Role Phone Felecia Good MD Primary Care Pro vider Reason for Visit * Reason Onset Date Comments Appointment Request 11/22/2024 Encounter Details Date Type Department Care Team ([facility] st Contact Info) Description 11/22/2024 Telephone [facility] [address] [place] [address] Felecia Good MD [address] [place] [address] Appointment Request Social History Tobacco Use Types Packs/Day Years [...] the past 12 months, has t he [employer], gas, oil or water [employer] threatened to shut off services in your home? No 05/07/2023 Depression Answer Date Recorded Patient Health Questionnaire-2 Score 1 11/10/2023 Sex and Gender Information Value Date Recorded Sex Assigned at Male 05/12/2022 10:18 AM EDT Legal Sex Male 10:18 AM EDT Gender Identity Male 05/12/2022 10:18 AM EDT Sexual Orientation Choose not to disclose 2021 10:18 AM EDT documented as of this encounter Miscellaneous Notes * Telephone Encounter - Lynne Ferguson - 11/22/2024 11:00 AM EDT Tc from pt requesting r/s pe appointment with pcp. documented in this encounter Plan of Treatment Upcoming Encounters Date Type Department Care Team (Late st Contact Info) Description 06/16/2025 10:00 AM EST Office Visit [facility] [address] [place] [phone] Martin Tanner MD [address] [place] [phone] 07/04/2025 9:15 AM EST Office Visit [facility] [address] [place] [address] [phone] Felecia Good MD [address] [place] [phone] documented as of this encounter Visit Diagnoses Not on filedocumented in this encounter Additional Health Concerns Assessment Noted Time PHQ-9 Depression Total Score: 2 11/10/19 24 10:19 AM EDT documented as of this encounter Care Teams Aircraft Cabin Cleaner Relationship Specialty Start Date End Date Felecia Good MD [address] [place] [phone] PCP - General Internal Medicine 12/05/22 documented as of this encounter
--- OUTSIDE RECORDS SUMMARY | 2025-06-12 17:33 | XMS_ITS | Encounter Summary ---
Author Organization [employer] Address [address] [facility] [address] 7t [place] [address] Care Team Providers Care Value Stream Manager Name Role Phone Felecia Good MD Primary Care Pro vider Reason for Visit * Reason Comments Med Refill Encounter Details Date Type Department Care Team ([facility] st Contact Info) Description 12/27/2024 Refill [facility] [address] [place], [place] [phone] Tod Pierce MD 230 [place], [place] [phone] Social History Tobacco Use Types Packs/Day Years [...] Description 06/16/2025 10:00 AM EST Office Visit [facility] [address] [place] [phone] Martin Tanner MD [address] [place] [address] 07/04/2025 9:15 AM EST Office Visit [facility] [address] [place] [phone] Felecia Good MD [address] [place] [address] documented as of this encounter Visit Diagnoses Not on filedocumented in this encounter Additional Health Concerns Assessment Noted Time PHQ-9 Depression Total Score: 2 11/10/19 24 10:19 AM EDT documented as of this encounter Care Teams Value Stream Manager Relationship Specialty Start Date End Date Felecia Good MD [address] [place] [phone] PCP - General Internal Medicine 12/05/22 documented as of this encounter
--- OUTSIDE RECORDS SUMMARY | 2025-06-12 17:33 | XMS_ITS | Encounter Summary ---
Author Organization [employer] Address [address] [facility] 7t [place] [address] Care Team Providers Care Sewer Tapper Name Role Phone Felecia Good MD Primary Care Pro vider Reason for Visit * Reason Onset Date Comments Med Refill 11/22/2024 Encounter Details Date Type Department Care Team (Late st Contact Info) Description 11/22/2024 Telephone [facility] [address] [place] [address] Felecia Good MD 230 [place], [place] [phone] Med Refill Social History Tobacco Use Types Packs/Day Years [...] the past 12 months, has t he [employer], gas, oil or water [employer] threatened to shut off services in your [...] encounter Miscellaneous Notes * Telephone Encounter - Marlen Batista LPN - 11/22/2024 11:04 AM EDT Medication pended to Provider. * Telephone Encounter - Lynne Ferguson - 11/22/2024 10:58 AM EDT TC from pt requesting medication refill. Medications needing refill : - lisinopril 10 MG tablet - gabapentin (Neurontin) 100 MG capsule To be sent to: [facility] documented in this encounter Plan of Treatment Upcoming Encounters Date Type Department Care Team (Late st Contact Info) Description 06/16/2025 10:00 AM EST Office Visit [facility] [address] [place] [phone] Martin Tanner MD 230 [place] [address] 07/04/2025 9:15 AM EST Office Visit [facility] [address] [place] [address] Felecia Good MD [address] [place] [address] documented as of this encounter Visit Diagnoses Not on filedocumented in this encounter Additional Health Concerns Assessment Noted Time PHQ-9 Depression Total Score: 2 11/10/19 24 10:19 AM EDT documented as of this encounter Care Teams Sewer Tapper Relationship Specialty Start Date End Date Felecia Good MD [address] [place] [address] PCP - General Internal Medicine 12/05/22 documented as of this encounter
--- OUTSIDE RECORDS SUMMARY | 2025-06-12 17:34 | XMS_ITS | Encounter Summary ---
Author Organization [employer] Address [address] 7[address] [place] [address] Care Team Providers Care Inspector Fabric Name Role Phone Felecia Good MD Primary Care Pro vider Reason for Visit * Reason Comments Med Refill Encounter Details Date Type Department Care Team ([facility] st Contact Info) Description 10/12/2024 Refill [facility] [address] [place], [place] [phone] Louie Mann MD 230 [place], [place] [phone] Social History Tobacco Use Types Packs/Day Years [...] Description 06/16/2025 10:00 AM EST Office Visit [facility] [address] [place] [phone] Martin Tanner MD [address] [place] [phone] 07/04/2025 9:15 AM EST Office Visit [address] [phone] Felecia Good MD [address] [place] [phone] documented as of this encounter Visit Diagnoses Not on filedocumented in this encounter Additional Health Concerns Assessment Noted Time PHQ-9 Depression Total Score: 2 11/10/19 24 10:19 AM EDT documented as of this encounter Care Teams Inspector Fabric Relationship Specialty Start Date End Date Felecia Good MD [address] [place] [phone] PCP - General Internal Medicine 12/05/22 documented as of this encounter
--- OUTSIDE RECORDS SUMMARY | 2025-06-12 17:34 | XMS_ITS | Encounter Summary ---
Author Organization [employer] Address [address] [facility] [address] [place] [address] Care Team Providers Care Carton Stenciler Name Role Phone Francine Andrews [facility] Primary Care Provider Felecia Gillespie MD Primary Care Pro vider Reason for Visit * Reason Onset Date Comments triage 07/15/2022 Encounter Details Date Type Department Care Team ([facility] Contact Info) Description 07/15/2022 Telephone [facility] [address] [place] [phone] Francine Andrews FNP triage Social History Tobacco Use Types Packs/Day [...] Upcoming Encounters Date Type Department Care Team ([facility] Contact Info) Description 06/16/2025 10:00 AM EST Office Visit [facility] [address] [place] [address] Martin Tanner MD [address] [place] [phone] 07/04/2025 9:15 AM EST Office Visit [facility] [address] [place] [address] Felecia Good MD 230 [place], [place] [phone] documented as of this encounter Visit Diagnoses Not on filedocumented in this encounter Care Teams Carton Stenciler Relationship Specialty Start Date End Date Francine Andrews FNP PCP - General Family Medicine 01/10/22 12/04/22 Felecia Good MD [address] [place] [address] [phone] PCP - General Internal Medicine 12/05/22 documented as of this encounter
--- OUTSIDE RECORDS SUMMARY | 2025-06-12 17:34 | XMS_ITS | Encounter Summary ---
Author Organization [employer] Address [address] [facility] 7t [place] [address] Care Team Providers Care Tar Heat Exchanger Cleaner Name Role Phone Felecia Good MD Primary Care Pro vider Reason for Visit * Reason Comments Med Refill Encounter Details Date Type Department Care Team ([facility] st Contact Info) Description 06/03/[address] [facility] [address] [place], [place] [phone] Felecia Good MD [address] [place] [address] Social History Tobacco Use Types Packs/Day Years [...] encounter Miscellaneous Notes * Telephone Encounter - Felecia De Dios MD - 06/06/2025 1:20 PM EST Pt has refill already -confirmed w pharmacy documented in this encounter Plan of Treatment Upcoming Encounters Date Type Department Care Team (Late st Contact Info) Description 06/16/2025 10:00 AM EST Office Visit [facility] [address] [place] [phone] Martin Tanner MD [address] [place] [phone] 07/04/2025 9:15 AM EST Office Visit [facility] [address] [place] [address] [phone] Felecia Good MD [address] [place] [address] documented as of this encounter Visit Diagnoses Not on filedocumented in this encounter Additional Health Concerns Assessment Noted Time PHQ-9 Depression Total Score: 2 11/10/19 10:19 AM EDT documented as of this encounter Care Teams Tar Heat Exchanger Cleaner Relationship Specialty Start Date End Date Felecia Good MD [address] [place] [phone] PCP - General Internal Medicine 12/05/22 documented as of this encounter
--- OUTSIDE RECORDS SUMMARY | 2025-06-12 17:34 | XMS_ITS | Encounter Summary ---
Author Organization [employer] Address [address] [facility] [address] [address] 7t [place] [address] Care Team Providers Care First Officer Name Role Phone Felecia Good MD Primary Care Pro vider Encounter Details Date Type Department Care Team (Late st Contact Info) Description 04/22/2023 Orders Only [facility] 230 [place], [place] [phone] Louie Mann MD [address] [place] [address] Rash (Primary Dx) Social History Tobacco Use [...] housing situation today? I have goran lara 04/20/[address] you [...] Description 06/16/2025 10:00 AM EST Office Visit [facility] [address] [place] [phone] Martin Tanner MD [address] [place] [phone] 07/04/2025 9:15 AM EST Office Visit [facility] [address] [place] [phone] Felecia Good MD [address] [place] [phone] documented as of this encounter Visit Diagnoses Diagnosis Rash- Primary Rash and other nonspecific skin eruption documented in this encounter Additional Health Concerns Assessment Noted Time PHQ-9 Depression Total Score: 16 023 9:23 AM EDT documented as of this encounter Care Teams First Officer Relationship Specialty Start Date End Date Felecia Good MD [address] [place] [phone] PCP - General Internal Medicine 12/05/22 documented as of this encounter
--- OUTSIDE RECORDS SUMMARY | 2025-06-12 17:34 | XMS_ITS | Clinical Summary ---
Author Organization [employer] Address [address] [facility] 7t [place] [address] Care Team Providers Care Day Care Attendant Name Role Phone Felecia Good MD Primary Care Pro vider Allergies No known active allergies Medications Blood Pressure Monitor kitIndications: Syncope, unspecified syncope type,Primary hypertension Use as directed 3x/week 1 kit 12/10/19 23 Active fluticasone-mike meterol (Advair) 230-21 MCG/ACT inhaler Inhale 2 puffs in the morning and at bedtime. Rinse mouth with water after use to reduce aftertaste and incidence of candidiasis. Do not swallow. 12 g 11 11/10/19 24 Active divalproex (Depakote ER) 250 MG 24 hr tabletIndicatio ns:Schizophreni a, unspecified type (FORMERLY [facility]) TAKE 1 TABLET DAILY, DO NOT BREAK, CRUSH, DISSOLVE OR CHEW 30 tablet 2 09/20/19 25 Active fluocinolone (DermOtic) 0.01 % ear dropsIndication s:Chronic eczematous otitis externa of both ears Administer 5 drops into each ear 2 times daily. For 7 days 30 mL 11/24/19 25 Active diphenhydrAMINE (BENADryl) 25 MG capsule Take 2 capsules (50 mg) by mouth every 6 (six) hours if needed for itching. May take 1-2 capsules prn rashor itching 30 capsule 11/24/19 25 026 Active gabapentin (Neurontin) 100 MG capsule Take 1 capsule (100 mg) by mouth 3 times daily. TAKE 1 CAPSULE BY MOUTH THREE TIMES DAILY IN THE MORNING, AT NOON, AND AT BEDTIME FOR PAIN 45 capsule 1 01/28/20 25 Active betamethasone, augmented, (Diprolene) 0.05 % ointmentIndicat ions:Psoriasis vulgaris Apply topically 2 times daily. 50 g 2 5 12:51 PM EST 03/17/20 25 Active triamcinolone (Kenalog) 0.1 % ointmentIndicat ions:Psoriasis vulgaris Apply topically 2 times daily. 453.6 g 2 5 11:01 AM EST 03/17/20 25 Active dorzolamide-conner olol (Cosopt) 2-0.5 % ophthalmic solutionIndicat ions:Primary open angle glaucoma of both eyes, unspecified glaucoma stage Administer 1 drop into both eyes 2 times daily. 10 mL 5 03/28/20 25 026 Active Ventolin HFA 108 (90 Base) MCG/ACT inhaler INHALE 2 PUFFS BY MOUTH EVERY 6 HOURS NEEDED FOR WHEEZING 18 g 3 5 11:01 AM EST 04/07/20 25 Active latanoprost (Xalatan) 0.005 % ophthalmic solutionIndicat ions:Primary open angle glaucoma of both eyes, unspecified glaucoma stage Administer 1 drop into both eyes at bedtime. 2.5 mL 5 04/11/20 25 026 Active lidocaine (Lidoderm) 5 % patch APPLY 1 PATCH TOPICALLY TO SKIN, LEAVE ON FOR 12 HOURS AND OFF FOR 12 HOURS DIRECTED 30 patch 2 04/12/20 25 Active naproxen (Naprosyn) 500 MG tablet TAKE 1 TABLET BY MOUTH TWICE DAILY 30 tablet 1 5 11:01 AM EST 04/27/20 25 Active lisinopril 10 MG tablet TAKE 1 TABLET BY MOUTH ONCE DAILY 90 tablet 5 11:01 AM EST 05/16/20 25 Active traZODone (Desyrel) 50 MG tabletIndicatio ns:Schizophreni a, unspecified type (HCC) TAKE 1/2 TABLET BY MOUTH AT BEDTIME 15 tablet 3 5 11:01 AM EST 05/19/20 25 Active baclofen (Lioresal) 10 MG tabletIndicatio ns:Chronic low back pain, unspecified back pain laterality, unspecified whether sciatica present Take 1 tablet (10 mg) by mouth 3 times daily. 42 tablet 5 3:11 PM EST 06/12/20 25 025 Active acetaminophen (Tylenol) 500 MG tabletIndicatio ns:Necrosis of dental pulp Take 1 tablet (500 mg) by mouth every 6 (six) hours if needed for mild pain for up to 20 doses. 20 tablet 5 3:11 PM EST 06/12/20 25 Active acetaminophen (Tylenol) 500 MG tabletIndicatio ns:Necrosis of dental pulp Take 1 tablet (500 mg) by mouth every 6 (six) hours if needed for mild pain for up to 20 doses. 20 tablet 09/07/19 25 025 Discontinued(R eorder (will not trigger notification to Pharmacy)) traZODone (Desyrel) 50 MG tabletIndicatio ns:Schizophreni a, unspecified type (FORMERLY [facility]) TAKE 1/2 TABLET BY MOUTH AT BEDTIME 15 tablet 3 12/16/19 25 025 Discontinued lisinopril 10 MG tablet TAKE 1 TABLET BY MOUTH EVERY DAY 90 tablet 02/21/20 25 025 Discontinued Active Problems Problem Noted Date Diagnosed Date Gingival bleeding 05/08/2025 Secondary dental caries 05/08/2025 Asthma 11/10/2023 Skin rash 11/10/2023 Obesity (BMI [...] anxiety disorder 02/22/2013 History of substance abuse ([facility]/HCC) 01/18/2013 Chronic back pain 12/07/2012 Resolved Problems Problem Noted Date Diagnosed Date Resolved Date Thoracic compression fracture 12/03/2012 11/10/2023 Assessment & Plan (09/02/2023 3:43 PM EST): Old. Order Xray Encounters Date Type Department Care Team Description 06/12/2025 1:20 PM EST Office Visit [facility] [address] [place] [address] Chronic low back pain, unspecified back pain laterality, unspecified whether sciatica present (Primary Dx); Necrosis of dental pulp 06/12/2025 Travel 06/03/2025 Refill [facility] [address], [place] [phone] Felecia Good MD 05/19/2025 Refill [facility] [address] [place] [phone] Carina Hatfield MD Schizophrenia, unspecified type (HCC) 05/15/2025 Refill [facility] [address] [place] [address] Felecia Good MD 05/08/2025 8:45 AM EDT Office Visit [facility] ADULT DENTAL [address] [place] [address] Pretty Gong Secondary dental caries (Primary Dx); Dental calculus; Periodontal disease; Gingival bleeding; Retained root of tooth after tooth extraction 05/02/2025 Outside Procedure [facility] [address] [place] [address] Erich, Elvira, OD Presbyopia (Primary Dx) 04/28/2025 9:00 AM EDT Office Visit [facility] [address] [place] [address] Erich, Elvira, OD Myopia of both eyes (Primary Dx) 04/26/2025 Refill [facility] [address] [place] [address] Felecia Good MD 04/20/2025 Patient Outreach [facility] [address] [place] [phone] Felecia Good MD Pre-visit Planning (Pre-visit planning - LVM ) 04/12/2025 Refill [facility] [address] [place] [address] Carina Hatfield MD 04/11/2025 9:15 AM EDT Office Visit [facility] [address] [place] [address] MaximiliangiselleNakulMargarita, OD Primary open angle glaucoma of both eyes, unspecified glaucoma stage (Primary Dx) 04/07/2025 Refill [facility] [address] [place] [address] Felecia Good MD 03/28/2025 10:30 AM EDT Office Visit [facility] [address] [place] [address] Margarita Wei, OD Primary open angle glaucoma of both eyes, unspecified glaucoma stage (Primary Dx); Dry eyes, bilateral; Migraine aura without headache; Presbyopia 03/28/2025 Travel 03/20/2025 Refill [facility] [address], [place] [phone] Felecia Good MD 03/17/2025 10:00 AM EDT Office Visit [facility] [address] [place] [address] Martin Tanner MD Psoriasis vulgaris (Primary Dx) 03/17/2025 Travel from Last 3 Months Immunizations Immunization Administration Dates Next Due Hep B, Adolescent [...] (280 lb) 06/12/2025 1:23 PM EST Height 188 cm (6' 2 ) 03/17/2025 9:55 AM EDT Body Mass Index 35.95 03/17/2025 9:55 AM EDT Plan of Treatment Upcoming Encounters Date Type Department Care Team (Late st Contact Info) Description 06/16/2025 10:00 AM EST Office Visit [address] [phone] Martin Tanner MD [address] [place] [address] [phone] 07/04/2025 9:15 AM EST Office Visit [address] [phone] Felecia Good MD [address] [place] [address] [phone] Health Maintenance Due Date Last Done Comments CT Colonography 1975 Colonoscopy 1975 Colorectal Cancer Screening 1975 FIT DNA/Cologuard 1975 FIT 1975 FOBT 1975 HIV Screening 1975 Sigmoidoscopy 1975 Disability Screening 1975 Alcohol/Substance Use Screening 1987 Family Planning (PISQ) 1990 Hepatitis B Vaccines (1 of 3 - 19+ 3-dose series) 1994 03/21/2008, 10/18/2007, 08/16/2006 DTaP/Tdap/Td Vaccines (1 - Tdap) 08/14/2006 08/13/2006 Pneumococcal Vaccine: Pediatrics (0 to 5 Years) and At-Risk Patients (6 to 49) Years (2 of 2 - PCV) 08/13/2007 08/13/2006 SDOH Screening 12/10/2023 12/09/2022 Depression Screening 11/09/2024 11/10/2023, 11/10/19 24 COVID-19 Vaccine (2 - 2025-26 season) 2025 08/17/2021 Influenza Vaccine (#1) 2025 4, 04/18/2010, 06/06/2008, Additional history exists Zoster Vaccines (1 of 2) 2025 Lipid Panel 11/02/2025 11/02/2020 Dental Oral Exam 11/07/2025 05/08/2025, 11/05/2022 Dental Prophylaxis 11/07/2025 05/08/2025, 11/05/2022 Dental X-Ray: Bitewings 05/09/2026 05/08/2025, 11/05 Tobacco Screening 06/12/2026 06/12/2025 Dental X-Ray: Full Mouth 07/15/2026 07/14/2023, 10/12 RSV Patients and Patients Aged 60 years or older (1 - 1-dose 75+ series) 2050 Hepatitis C Screening Completed 11/02/2020 HIB Vaccines Aged Out No longer eligi ble based on patient's age to complete this topic HPV Vaccines Aged Out No longer eligi ble based on patient's age to complete this topic Hepatitis A Vaccines Aged Out No long er eligible based on patient's age to complete this topic IPV Vaccines Aged Out No longer eligi ble based on patient's age to complete this topic Meningococcal B Vaccine Aged Out No l onger eligible based on patient's age to complete [...] back pain laterality, unspecified whether sciatica present COMPREHENSIVE PERIODONTAL EVALUATION - NEW OR ESTABLISHED PATIENT Routine 05/08/2025 8:45 AM EDT PERIODIC ORAL EVALUATION - ESTABLISHED PATIENT Routine 05/08/2025 8:45 AM EDT 16 INTRAORAL - PERIAPICAL EACH ADDITIONAL RADIOGRAPHIC IMAGE Routine 05/08/2025 8:45 AM EDT Retained root of tooth after tooth extraction INTRAORAL - PERIAPICAL EACH ADDITIONAL RADIOGRAPHIC IMAGE Routine 05/08/2025 8:45 AM EDT Secondary dental caries Dental calculus Periodontal disease Gingival bleeding Retained root of tooth after tooth extraction INTRAORAL - PERIAPICAL FIRST RADIOGRAPHIC IMAGE Routine 05/08/2025 8:45 AM EDT Secondary dental caries Dental calculus Periodontal disease Gingival bleeding Retained root of tooth after tooth extraction BITEWINGS - 4 RADIOGRAPHIC IMAGES Routine 05/08/2025 8:45 AM EDT Secondary dental caries Dental calculus Periodontal disease Gingival bleeding Retained root of tooth after tooth extraction CASE PRESENTATION, DETAILED AND EXTENSIVE TREATMENT PLANNING Routine 05/08/2025 8:45 AM EDT Secondary dental caries Dental calculus Periodontal disease Gingival bleeding Retained root of tooth after tooth extraction ORAL HYGIENE INSTRUCTIONS Routine 05/08/2025 8:45 AM EDT Dental calculus Periodontal disease Gingival bleeding PROPHYLAXIS - ADULT Routine 05/08/2025 8 :45 AM EDT Dental calculus Periodontal disease Gingival bleeding OCT, OPTIC NERVE - OU - BOTH EYES Routine 03/28/2025 11:22 AM EDT Primary open angle glaucoma of both eyes, unspecified glaucoma stage PANORAMIC RADIOGRAPHIC IMAGE Routine 07/14/2023 8:45 AM EST Necrosis of dental pulp ZZZ HISTORICAL HEPATITIS C AB W/REFL TO HCV RNA, QN, PCR Routine 11/02/2020 8:01 AM EDT LIPID PANEL, STANDARD Routine 11/02/2020 8:01 AM EDT from Last 3 Months or Most Recently Relevant to Health Maintenance Results * XR Lumbar Spine 2-3 Views (06/12/2025 2:35 PM EST) Anatomical Region Laterality Modality Spine, L-spine Radiographic Madina ging 06/12/2025 2:35 PM EST Narrative 06/12/2025 2:52 PM EST [address] [phone] XRay Report Signed Patient: Mushtaq Canchola MR#: [id number] : 1975 Acct:[id number] Age/Sex: 49 / M ADM Date: 06/12/25 [facility]: Yancy Read Ordering Physician: Yancy Read Date of Service: 06/12/25 Procedure(s): XR lumbar spine 2-3V Accession Number(s): [id number] cc: Yancy Read Reason for Exam: pain [...] 06/12/25 1449 DD/ 1435 TD/TT: 06/12/25 1439 Churn Operator: Procedure Note Donotuseinterpreter, Image - 06/12/2025 [place] [address] XRay Report Signed Patient: Mushtaq Canchola AMR#: [id number] : 1975Acct:[id number] Age/Sex: 49 / MADM Date: 06/12/25 Loc: [facility] Attending Dr: Yancy Read Ordering Physician: Yancy Read Date of Service: 06/12/25 Procedure(s): XR lumbar spine 2-3V Accession Number(s): [id number] cc: Yancy Read Reason for Exam: pain [...] 06/12/25 1449 DD/ 1435 TD/TT: 06/12/25 1439 Churn Operator: Yancy Read ORAL SURGERY ASSISTANT IMG XR PROCEDURES Final Result * OCT, Optic Nerve - OU - Both Eyes (03/28/2025 11:22 AM EDT) Margarita Gutierrez, OD - 03/28/2025 11:22 AM EDT Images from the original result were not included. OCT GLAUCOMA INTERPRETATION Reliability : OD: SS 44 - good quality image OS: SS 48 - good quality image Measurements RNFL: Avg RNFL thickness OD: 77 microns OS: 83 microns Test findings RNFL: RNFL OD: Thin inferior temporal. Baseline. RNFL OS: Borderline thin inferior quadrant. Baseline. Test findings GCL: GCL OD: Thin inferior temporal. Baseline. GCL OS: Robust GCL 360. Baseline. Impression and Plan: Highly suspicious RNFL/GCL thinning pattern OD>OS. Refer for glaucoma eval. Margarita Wei OD OPHTH TOMOGRAPHY Final Result * HEPATITIS C AB W/REFL TO HCV RNA, QN, PCR (11/02/2020 8:01 AM EDT) HEPATITIS C ANTIBODY NON-REACT ALBERTO NON-REACT ALBERTO [facility] INDEX 0.03 <1.00 [facility] Comment: HCV antibody was non-reactive. There is no laboratory evidence of HCV infection. In most cases, no further action is required. However, if recent HCV exposure is suspected, a test for HCV RNA (test code 09358) is suggested. For additional information please refer to http://education.[employer]/faq/ZIU33v5 (This link is being provided for informational/ educational purposes only.) 11/02/2020 8:01 AM EDT Historical Provider HISTORICAL/NON ORDERABLE LABS Final Result Performing Organization Address [facility] de Phone Number [facility] [address] * (ABNORMAL) LIPID PANEL, STANDARD (11/02/2020 8:01 AM EDT) Chol/HDLC Ratio 5.5(H) <5.0 (calc) [facility] Cholesterol, Total 188 <200 mg/dL [facility] HDL Cholesterol 34(L) > OR = 40 mg/dL [facility] LDL Cholesterol 134(H) mg/dL (calc) [facility] Comment: Reference range: <100 Desirable range <100 mg/dL for primary prevention; <70 mg/dL for patients with CHD or diabetic patients with > or = 2 CHD risk factors. LDL-C is now calculated using the Markie-Rocío calculation, which is a validated novel method providing better accuracy than the Friedewald equation in the estimation of LDL-C. Markie PONCE et al. ABBY. 2013;310(19): 3861-0164 (http://education.[employer].com/faq/WJT341) Non-HDL Cholesterol 154(H) <130 mg/dL (calc) [facility] Comment: For patients with diabetes plus 1 major ASCVD risk factor, treating to a non-HDL-C goal of <100 mg/dL (LDL-C of <70 mg/dL) is considered a therapeutic option. Triglycerides 92 <150 mg/dL [facility] 11/02/2020 8:01 AM EDT us Historical Provider LAB BLOOD ORDERABLES Lissa l Result Performing Organization Address [facility] Co de Phone Number [facility] [address] from Last 3 Months or Most Recently Relevant to Health Maintenance Insurance Care Teams Day Care Attendant Relationship Specialty Start Date End Date Felecia Good MD [address] [place] [phone] PCP - General Internal Medicine 12/05/22
--- OUTSIDE RECORDS SUMMARY | 2025-06-12 17:34 | XMS_ITS | Encounter Summary ---
Author Organization [employer] Address [address] [facility] 7t [place] [address] Care Team Providers Care [employer] Name Role Phone Darryl Francinerosa NAJERA Primary Care Provider Felecia Gillespie MD Primary Care Pro vider Encounter Details Date Type Department Care Team (Late st Contact Info) Description 11/20/2022 Abstract [facility] [address] [place] [address] Pretty Gong [address] [place] [address] Social History Tobacco Use Types Packs/Day Years [...] Department Care Team (Late Contact Info) Description 06/16/2025 10:00 AM EST Office Visit [facility] [address] [place] [address] Martin Tanner MD [address] [place] [address] 07/04/2025 9:15 AM EST Office Visit [facility] [address] [place] [address] Felecia Good MD [address] [place] [address] documented as of this encounter Visit Diagnoses Not on filedocumented in this encounter Care Teams [employer] Relationship Specialty Start Date End Date Francine Andrews FNP PCP - General Family Medicine 01/10/22 12/04/22 Felecia Good MD [address] [place] [address] PCP - General Internal Medicine 12/05/22 documented as of this encounter
--- OUTSIDE RECORDS SUMMARY | 2025-06-12 17:34 | XMS_ITS | Encounter Summary ---
Author Organization [employer] Address [address] [facility] 7t [place] [address] Care Team Providers Care Harness Worker Name Role Phone Darryl Francinerosa NAJERA Primary Care Provider Felecia Gillespie MD Primary Care Pro vider Encounter Details Date Type Department Care Team (Late st Contact Info) Description 11/18/2022 Abstract [facility] [address] [place] [address] Pretty Gong [address] [place] [address] Social History Tobacco Use Types Packs/Day Years [...] Description 06/16/2025 10:00 AM EST Office Visit [facility] [address] [place] [address] Martin Tanner MD [address] [place] [address] 07/04/2025 9:15 AM EST Office Visit [facility] [address] [place] [address] Felecia Good MD [address] [place] [address] documented as of this encounter Visit Diagnoses Not on filedocumented in this encounter Care Teams Harness Worker Relationship Specialty Start Date End Date Francine Andrews FNP PCP - General Family Medicine 01/10/22 12/04/22 Felecia Good MD [address] [place] [address] PCP - General Internal Medicine 12/05/22 documented as of this encounter
--- OUTSIDE RECORDS SUMMARY | 2025-06-12 17:34 | XMS_ITS | Encounter Summary ---
Author Organization [employer] Address [address] [facility] 7t [place] [address] Care Team Providers Care [employer] Manager Name Role Phone DarrylFrancine bustillo GENERAL WAREHOUSE ASSOCIATE Primary Care Provider Felecia Gillespie MD Primary Care Pro vider Encounter Details Date Type Department Care Team (Late st Contact Info) Description 10/03/2022 Orders Only [facility] [address] [place] [address] Marlen Batista LPN Social History Tobacco Use [...] Description 06/16/2025 10:00 AM EST Office Visit [facility] [address] [place] [phone] Martin Tanner MD [address] [place] [phone] 07/04/2025 9:15 AM EST Office Visit [facility] [address] [place] [address] [phone] Felecia Good MD [address] [place] [address] [phone] documented as of this encounter Procedures Procedure Name Priority Date/Time Associated Diagnosis Comments HIGH SENSITIVITY TROPONIN I Routine 12/07/2022 6:55 PM EDT CBC WITH AUTO DIFFERENTIAL Routine 12/07/2022 6:55 PM EDT BASIC METABOLIC PANEL Routine 12/07/2022 6:55 PM EDT documented in this encounter Results * High Sensitivity Troponin I (12/07/2022 6:55 PM EDT) Pathologist [facility] TROPONIN I HIGH SENSITIVITY <2.7 <3.5 - 35.0 ng/L [facility] Comment:The Booth high sens itivity Troponin-I results should beused in conjunction with other diagnostic information suchas ECG, clinical observations and information, and patientsymptoms to aid in the diagnosis of NE. 12/07/2022 6:55 PM EDT 12/07/2022 6:57 PM EDT us [facility] External Provider LAB BLO OD ORDERABLES Final Result [facility] [address] [place] [phone] * Basic Metabolic Panel (12/07/2022 6:55 PM EDT) Pathologist [facility] Sodium 140 135 - 145 mmol/L [facility] Potassium 4.2 3.3 - 5.1 mmol/L [facility] Chloride 106 96 - 108 mmol/L [facility] Carbon Dioxide 25 22 - 29 mmol/L [facility] Anion Gap 13 12 - 20 [facility] Urea Nitrogen (BUN) 11 9 - 16 mg/dL [facility] Creatinine, Serum 1.03 0.5 - 1.4 mg/dL [facility] Creatinine Clr Calc Pharmacy 121.0 [facility] Comment:eGFR (calculated fro m the MDRD study equation) and eCrCl(calculated from the Cockcroft-Gault equation) are based ondifferent parameters and may not yield comparable results.If eCrCl result is absurd, please check patient'sheight/weight. Estimated Glomerular Filt Rate >60 [facility] Comment:NOTE: For -Am erican individuals, multiply the result by 1.210.Chronic Kidney Disease: Estimated GFR < 60 mL/min/1.97g7Taqkay Kidney Disease: Estimated GFR < 15 mL/min/1.73m2 Glucose 100 60 - 115 mg/dL [facility] Calcium 9.6 8.4 - 10.2 mg/dL [facility] 12/07/2022 6:55 PM EDT 12/07/2022 6:57 PM EDT us [facility] External Provider LAB BLO OD ORDERABLES Final Result [facility] [address] [place] [phone] * (ABNORMAL) CBC auto differential (12/07/2022 6:55 PM EDT) White Blood Count 10.0 4.8 - 10.8 X10*3/uL [facility] Red Blood Count 4.74 4.60 - 5.80 X10*6/uL [facility] Hemoglobin 14.7 14.0 - 18.0 g/dl [facility] Hematocrit 42.6 42.0 - 52.0 % [facility] Mean Corpuscular Volume 89.9 80.0 - 98.0 fL [facility] Mean Corpuscular Hemoglobin 31.0 27.0 - 33.0 pg [facility] Mean Corpuscular HGB Conc 34.5 31.0 - 36.0 g/dl [facility] Red Cell Distribution Width 12.4 11.0 - 16.0 % [facility] Platelet Count 325 160 - 400 X10*3/uL [facility] Mean Platelet Volume 10.3 9.4 - 12.4 fL [facility] Neutrophils Percent Auto 75.3(H) 45 - 73 % [facility] Imm Gran Pct Auto 0.3 0.0 - 0.4 % [facility] Lymphocytes Percent Auto 16.8(L) 20 - 40 % [facility] Monocytes Percent Auto 6.7 2 - 11 % [facility] Eosinophils Percent Auto 0.3 0 - 4 % [facility] Basophils Percent Auto 0.6 0 - 2 % [facility] NRBC Pct Auto 0.0 0.0 - 0.2 /100WBC [facility] Neutrophils Absolute Auto 7.5 2.0 - 8.3 x10*3/uL [facility] Imm Gran Abs Auto 0.03 0.00 - 0.03 X10*3/uL [facility] Lymphocytes Absolute Auto 1.7 1.2 - 4.9 X10*3/uL [facility] Monocytes Absolute Auto 0.7 0.1 - 1.2 X10*3/uL [facility] Eosinophils Absolute Auto 0.0 0.0 - 0.4 X10*3/uL [facility] Basophils Absolute Auto 0.1 0.0 - 0.2 X10*3/uL [facility] NRBC Abs Auto 0.000 0.0 - 0.012 X10*3/uL [facility] 12/07/2022 6:55 PM EDT 12/07/2022 6:57 PM EDT us [facility] External Provider LAB BLO OD ORDERABLES Final Result [facility] [address] [place] [address] [phone] documented in this encounter Visit Diagnoses Not on filedocumented in this encounter Care Teams [employer] Manager Relationship Specialty Start Date End Date Francine Andrews FNP PCP - General Family Medicine 01/10/22 12/04/22 Felecia Good MD [address] [place] [address] PCP - General Internal Medicine 12/05/22 documented as of this encounter
--- OUTSIDE RECORDS SUMMARY | 2025-06-12 17:34 | XMS_ITS | Encounter Summary ---
Author Organization [employer] Address [address] 7t [place] [address] Care Team Providers Care Certified Income Tax Preparer Name Role Phone Felecia Good MD Primary Care Pro vider Reason for Visit * Reason Comments Med Refill Encounter Details Date Type Department Care Team (Late st Contact Info) Description 01/01/2023 Refill [facility] [address] [place] [address] [phone] Kenny Han FNP Rash Social History Tobacco [...] Description 06/16/2025 10:00 AM EST Office Visit [facility] [address] [place] [address] [phone] Martin Tanner MD [address] [place] [phone] 07/04/2025 9:15 AM EST Office Visit [facility] [address] [place] [address] [phone] Felecia Good MD [address] [place] [address] documented as of this encounter Visit Diagnoses Diagnosis Rash Rash and other nonspecific skin eruption documented in this encounter Additional Health Concerns Assessment Noted Time PHQ-9 Depression Total Score: 16 12/09/ 023 9:23 AM EDT documented as of this encounter Care Teams Certified Income Tax Preparer Relationship Specialty Start Date End Date Felecia Good MD [address] [place] [address] [phone] PCP - General Internal Medicine 12/05/22 documented as of this encounter
--- OUTSIDE RECORDS SUMMARY | 2025-06-12 17:34 | XMS_ITS | Encounter Summary ---
Author Organization [employer] Address [address] [facility] 7t [place] [address] Care Team Providers Care Bag Machine Helper Name Role Phone Felecia Good MD Primary Care Pro vider Reason for Visit * Reason Comments Med Refill Encounter Details Date Type Department Care Team ([facility] st Contact Info) Description 11/23/2023 Refill [facility] [address] [place], [place] [phone] Felecia Good MD [address] [place] [address] Social History Tobacco Use Types Packs/Day Years [...] Description 06/16/2025 10:00 AM EST Office Visit [facility] [address] [place] [address] [phone] Martin Tanner MD [address] [place] [address] [phone] 07/04/2025 9:15 AM EST Office Visit [facility] [address] [place] [address] [phone] Felecia Good MD [address] [place] [address] [phone] documented as of this encounter Visit Diagnoses Not on filedocumented in this encounter Additional Health Concerns Assessment Noted Time PHQ-9 Depression Total Score: 2 11/10/19 24 10:19 AM EDT documented as of this encounter Care Teams Bag Machine Helper Relationship Specialty Start Date End Date Felecia Good MD [address] [place] [address] [phone] PCP - General Internal Medicine 12/05/22 documented as of this encounter
--- OUTSIDE RECORDS SUMMARY | 2025-06-12 17:34 | XMS_ITS | Encounter Summary ---
Author Organization [employer] Address [address] [facility] 7t [place] [address] Care Team Providers Care Professor Of Graphic Design Name Role Phone Felecia Good MD Primary Care Pro vider Reason for Visit * Reason Comments Med Refill Encounter Details Date Type Department Care Team (Late Contact Info) Description 01/09/2023 Refill [facility] [address] [place], [place] [phone] Kenny Han FNP Rash Social History Tobacco [...] Description 06/16/2025 10:00 AM EST Office Visit [facility] [address] [place], [place] [phone] Martin Tanner MD [address] [place] [address] [phone] 07/04/2025 9:15 AM EST Office Visit [facility] [address] [place] [address] Felecia Good MD [address] [place] [address] documented as of this encounter Visit Diagnoses Diagnosis Rash Rash and other nonspecific skin eruption documented in this encounter Additional Health Concerns Assessment Noted Time PHQ-9 Depression Total Score: 16 12/09/ 023 9:23 AM EDT documented as of this encounter Care Teams Professor Of Graphic Design Relationship Specialty Start Date End Date Felecia Good MD [address] [place] [address] PCP - General Internal Medicine 12/05/22 documented as of this encounter
--- OUTSIDE RECORDS SUMMARY | 2025-06-12 17:34 | XMS_ITS | Encounter Summary ---
Demographics Address [address] [facility] [address] [place] [address] Mobile Phone Home Phone Work Phone Preferred Language es Marital Status Holiness Affiliation Unknown Race Other Race Ethnic Group Unknown Author Organization [employer] Address [address] 7t [place] [address] Care Team Providers Care Director Online Marketing Name Role Phone Felecia Good MD Primary Care Pro vider Encounter Details Date Type Department Care Team (Latest Contact Info) Description 06/12/2025 Travel Social History Tobacco Use Types Packs/Day Years [...] 06/16/2025 10:00 AM EST Office [facility] [address] [place] [phone] Martin Tanner MD [address] [place] [address] [phone] 07/04/2025 9:15 AM EST Office [facility] [address] [place] [address] [phone] Felecia Good MD [address] [place] [address] [phone] documented as of this encounter Visit Diagnoses Not on filedocumented in this encounter Additional Health Concerns Assessment Noted Time PHQ-9 Depression Total Score: 2 11/10/19 24 10:19 AM EDT documented as of this encounter Care Teams Director Online Marketing Relationship Specialty Start Date End Date Felecia Good MD [address] [place] [address] [phone] PCP - General Internal Medicine 12/05/22 documented as of this encounter
--- OUTSIDE RECORDS SUMMARY | 2025-06-12 17:34 | XMS_ITS | Encounter Summary ---
Author Organization [employer] Address [address] 7[address] [place] [address] Care Team Providers Care Anesthesia Assistant Name Role Phone Felecia Good MD Primary Care Pro vider Reason for Visit * Reason Comments Med Refill Encounter Details Date Type Department Care Team (Late st Contact Info) Description 05/07/2023 Refill [facility] 230 [place], [place] [phone] Francine Andrews, DANIA Pain Social History Tobacco Use Types Packs/Day Years Used Date Smoking Tobacco: Former Cigarettes Passive Smoke Exposure: Never Smokeless Tobacco: Never Alcohol Use Standard Drinks/Week Comments Never 0 (1 standard drink = 0.6 oz pur e alcohol) Depression Answer Date Recorded Patient Health Questionnaire-9 Score 16 12/09/2022 Housing Stability Answer Date Recorded What is your housing situation today? I have gorannataliia lara 05/07/[address] you [...] Description 06/16/2025 10:00 AM EST Office Visit [facility] [address] [place] [address] [phone] Martin Tanner MD [address] [place] [address] [phone] 07/04/2025 9:15 AM EST Office Visit [facility] [address] [place] [address] [phone] Felecia Good MD [address] [place] [address] [phone] documented as of this encounter Visit Diagnoses Diagnosis Pain Generalized pain documented in this encounter Additional Health Concerns Assessment Noted Time PHQ-9 Depression Total Score: 16 023 9:23 AM EDT documented as of this encounter Care Teams Anesthesia Assistant Relationship Specialty Start Date End Date Felecia Good MD [address] [place] [address] [phone] PCP - General Internal Medicine 12/05/22 documented as of this encounter
== END 2025-06-12 14:10 | disposition home or self-care (01) ==
LOC: HO.HHCX 14:09
PROVIDERS: Visit Provider Nurse Practitioner
DX: G89.29 Other chronic pain (principal); M54.50 Low back pain, unspecified
CPT/HCPCS: 72100

== ENCOUNTER → 2025-06-12 14:10 | Outpatient (BNV) | payer MEDICAID, SELFPAY | PROVIDERS: Visit Provider Radiology Diagnostic Radiology | DX: M54.50 Low back pain, unspecified (principal) | CPT/HCPCS: 72100 ==

== ENCOUNTER 2025-06-25 08:54 | Emergency (ER) | payer MEDICAID, SELFPAY ==
--- NOTE | ~2025-06-25 | MR_ITS ---
CLINICAL HISTORY: right facial weakness Exam: Nonenhanced MRI brain. Comparison: CT brain 06/25/2025. Findings: There is no cerebral edema or mass effect. White matter signal intensities are maintained. Diffusion weighted imaging reveals no restricted diffusion or MR evidence of acute ischemia. Susceptibility weighted imaging reveals no susceptibility artifact or evidence of intracranial hemorrhage. No sellar or parasellar lesions. Ventricular size and configuration are within normal limits. Cerebral cisterns are preserved. There is persistent near-complete opacification of the right maxillary sinus. No other significant signal abnormality seen within the paranasal sinuses or mastoid air cells. Preserved flow signal voids are present within visualized intracranial vasculature. Impression: 1. No acute intracranial abnormalities. This document has been electronically signed by: Reinaldo Angelo MD on 06/25/2025 14:36:21
--- NOTE | ~2025-06-25 | CT_ITS ---
CLINICAL HISTORY: right facial weakness CT Head without contrast. CT angiography head and neck with contrast. 3D Postprocessing. Comparison: None provided Findings: HEAD CT: No intra-axial mass, midline shift, hydrocephalus, or acute hemorrhage. No significant atrophy-like change or white matter disease. There is near-complete opacification of the right maxillary sinus with hyperdense secretions and sclerotic lateral maxillary sinus wall. There is mild left maxillary sinus mucosal thickening. Mastoid air cells are clear. The orbits are unremarkable. No skull fracture. HEAD AND NECK CTA: Aortic arch and cervical great vessels are patent. Intracranial arteries are patent. No aneurysm, dissection, or occlusion. No abnormal intracranial enhancement. The visualized thyroid gland is unremarkable. No cervical mass or fluid collection. Lung apices clear. No acute fracture. IMPRESSION: 1. No acute intracranial findings. 2. Patent head and neck CTA. 3. Right maxillary sinus fluid containing hyperdense foci likely reflecting inspissated secretions from chronic sinus disease. This document has been electronically signed by: Ovidio Thomason MD on 06/25/2025 11:22:49
[2025-06-25 08:58] VITALS: BP 145/87; PULSE 109; RESP 18; TEMP 37.1; O2SAT 98; BMI 35.1
--- NOTE | 2025-06-25 09:19 | ED.NEUROSD ---
HPI - Neuro Symptoms/Deficit General Chief Complaint: Neuro Symptoms/Deficit Stated Complaint: facial numbness R side Time Seen by Provider: 06/25/25 09:10 Source: patient, family and language interpreter Mode of arrival: ambulatory Limitations: no limitations History of Present Illness ED Provider: DR. Pyle HPI Narrative: 50-year-old male walked into the emergency department for evaluation of right facial droop started since 20:00 last night, patient complained of no headache, no blurry vision, no weakness or numbness anywhere else, +flu-like symptoms last week, no ear pain or dizziness, no chest pain, no shortness of breath, no fever, no chills. Related Data Previous Rx's ?Medication ?Instructions ?Recorded ibuprofen 400 mg tablet 400 mg PO Q8H PRN pain #10 tabs 12/07/22 carboxymethylcellulose sodium 1 % 1 drp ophthalmic (eye) TID #15 mL 06/25/25 eye drops (Artificial Tears (carboxymethylcellulose)) prednisone 20 mg tablet 20 mg PO BID #10 tabs 06/25/25 valacyclovir 1 gram tablet 1,000 mg PO TID #7 tabs 06/25/25 (Valtrex) Allergies Allergy/AdvReac Type Severity Reaction Status Date / Time No Known Allergies (No Known Allergy Verified 06/25/25 09:07 Allergies*) Review of Systems Review of Systems: All other systems are reviewed and are negative Constitutional: Reports as per HPI and Reports no additional constitutional complaints Eyes: Reports as per HPI and Reports no additional eye complaints Reports system reviewed and no additional complaints, except as documented Cardiovascular: Reports as per HPI and Reports no additional cardiovascular complaints Respiratory: Reports as per HPI and Reports no additional respiratory complaints Gastrointestinal: Reports as per HPI and Reports no additional gastrointestinal complaints Genitourinary: Reports no additional female genitourinary complaints Musculoskeletal: Reports no additional musculoskeletal complaints Skin/Breast: Reports system reviewed and no additional complaints, except as docu Psychiatric: Reports no additional psychiatric complaints Endocrine: Reports no additional endocrine complaints Hematologic/Lymphatic: Reports no additional hematologic/lymphatic complaints Allergic/Immunologic: Reports no additional allergic/immunologic complaints Reports system reviewed and no additional complaints, except as documented and Reports Abnormal speech present PMFSH Social History Social History Smoked in Last 30 Days: No Use of substances other than those prescribed or required for medical reasons: No Advance Directives: No Advance Directives Information Provided: No Physical Exam Vital Signs: Vital Signs: Last Vital Signs Temp 98.6 F 06/25/25 14:23 Pulse 110 H 06/25/25 14:23 Resp 17 06/25/25 14:23 BP 119/74 06/25/25 14:23 Pulse Ox 95 06/25/25 14:23 O2 Del Method Room Air 06/25/25 14:23 BMI result Body Mass Index 35.1 Vital signs have been reviewed and appear to be correct. Blood pressure elevated. Heart rate normal. Respiratory rate normal. Temperature normal. Oxygen saturation normal. Appearance: Alert. Oriented X3. No acute distress. Head: Normal external exam. Normocephalic. Atraumatic. No Dickens signs noted. No raccoon eyes noted Eyes: PERRLA. EOMI. Conjunctiva and sclera normal. Eyelids normal. ENT: TM's Normal. Pharynx normal. Uvula midline. Moist mucous membranes. No trismus noted. No drooling noted. No muffled voice noted. Neck: Normal inspection. Neck supple. FROM. No adenopathy. Thyroid Normal. No meningeal signs. No neck mass noted. CVS: Normal heart rate and rhythm. Heart sound normal. No murmurs noted. Pulses normal throughout. Respiratory: No respiratory distress. Painless inspiration. Breath sounds normal. No wheezes/rales/rhonchi noted. Chest nontender. No accessory muscle usage noted or decreased air movement noted. Abdomen: Soft and nontender. Bowel sounds normal in all 4 quadrants. No distention noted. No organomegaly noted. No visible injury noted. Back: No CVA tenderness. Full range of motion noted. Skin: Skin warm and dry. Normal skin color. Normal skin turgor. No rashes/lesions/lacerations noted. Extremities: No lower extremity edema. Extremities exhibit normal range of motion. Extremities nontender. Neuro: Mental status: Normal attention, orientation, memory, and affect. Cranial nerves: Pupils are equal, round and reactive to light, EOMI, visual morales are fall, face is symmetric, facial sensations are normal. Motor examination normal muscle tone, strength to 4 extremities. DTR are +2, planter's are flexor. Sensory exam; normal coordination, no ataxia, gait stable. Cerebellar exam: [id number] and [id number]-[id number] is normal. Extrapyramidal system: No tremors, no rigidity with normal facial expressions. Pronator drift not present Course Reevaluation(s) Reevaluation #1: a 50-year-old male with right facial droop since last night, neuro exam/CT head /CT angio of the head and neck/MRI of the brain all consistent with peripheral cranial nerve paresis and no centrum Neuro underlying cause of patient's symptoms. Will start the patient on antiviral medication, prednisone for 5 days. and artificial tears to prevent dry eye. Time: 15:04 Medications Administered Discontinued Medications Generic Name Dose Route Start Last Admin Trade Name Freq PRN Reason Stop Dose Admin Acetaminophen 975 mg 06/25/25 10:39 06/25/25 10:44 Acetaminophen 325 Mg Tablet PO 06/25/25 10:40 975 mg ONCE ONE Administration Iohexol 100 ml 06/25/25 10:22 06/25/25 10:23 Iohexol 350 Mg/Ml 100 Ml Infus..Btl IV 06/25/25 10:23 70 ml ONCE ONE Administration Prednisone 60 mg 06/25/25 09:27 06/25/25 09:46 Prednisone 20 Mg Tablet PO 06/25/25 09:28 60 mg ONCE ONE Administration Medical Decision Making Differential Diagnosis Differential Diagnoses: The differential diagnosis associated with the presentation includes ( Hemorrhagic stroke, ischemic stroke, peripheral Turner's palsy, electrolyte derangement, severe anemia.) Admission/Observation Consideration of admission/observation: Escalation of care including admission/observation considered Lab Data MDM Lab Attestation statement: I reviewed the patient's lab results. 06/25/25 09:23 06/25/25 09:22 Labs: Lab Results 06/25/25 06/25/25 Range/Units 09:22 09:23 WBC 7.7 (4.8-10.8) X10*3/uL RBC 4.81 (4.60-5.80) X10*6/uL Hgb 14.9 (14.0-18.0) g/dl Hct 42.2 (42.0-52.0) % MCV 87.7 (80.0-98.0) fL MCH 31.0 (27.0-33.0) pg MCHC 35.3 (31.0-36.0) g/dl RDW 12.3 (11.0-16.0) % Plt Count 283 (160-400) X10*3/uL MPV 11.0 (9.4-12.4) fL Immature Gran % (Auto) 0.4 (0.0-0.4) % Neut % (Auto) 54.7 (45-73) % Lymph % (Auto) 29.0 (20-40) % [place] % (Auto) 9.7 (2-11) % Eos % (Auto) 5.2 H (0-4) % Baso % (Auto) 1.0 (0-2) % Lymph # (Auto) 2.2 (1.2-4.9) X10*3/uL [place] # (Auto) 0.8 (0.1-1.2) X10*3/uL Eos # (Auto) 0.4 (0.0-0.4) X10*3/uL Baso # (Auto) 0.1 (0.0-0.2) X10*3/uL Abs Immat Gran (auto) 0.03 (0.00-0.03) X10*3/uL Absolute Neuts (auto) 4.2 (2.0-8.3) x10*3/uL Absolute Nucleated RBC 0.000 (0.0-0.012) X10*3/uL Nucleated RBC % (auto) 0.0 (0.0-0.2) /100WBC PT 12.7 (11.2-13.5) SEC INR 1.0 (0.9-1.1) Sodium 136 (135-145) mmol/L Potassium 3.7 (3.3-5.1) mmol/L Chloride 104 (96-108) mmol/L Carbon Dioxide 23 (22-29) mmol/L Anion Gap 13 (12-20) BUN 15 (9-16) mg/dL Creatinine 0.98 (0.5-1.4) mg/dL Estim Creat Clear Calc 126.1 Estimated GFR > 60 Random Glucose 121 H (60-115) mg/dL Calcium 9.6 (8.4-10.2) mg/dL Troponin I High Sens < 2.7 (<3.5-35.0) ng/L Independent Interpretation I performed an independent interpretation of an: CT Scan ( Head/ neck angio: No acute pathology.) and MRI ( Brain: No acute stroke.) Radiology Impression Discussion of test interpretation with radiology: I have reviewed the radiologist's reading. NIH Stroke Scale Internal: Initial- Upon Arrival Level of Consciousness: Alert Level of Consciousness Questions: Answers both questions correctly Level of Consciousness Commands: Performs both tasks correctly Best Gaze: Normal Visual: No visual loss Facial Palsy: Minor paralyis Motor Arm (Right): No drift Motor Arm (Left): No drift Motor Leg (Right): No drift Motor Leg (Left): No drift Limb Ataxia: Absent Sensory: Normal Best Language: No aphasia Dysarthia: Normal Extinction and Inattention: No abnormality Score: 1 Discharge Plan Discharge Clinical Impression: Turner's palsy Patient Disposition: Home, Self-Care Instructions: Turner Palsy (ED) Prescriptions: New prednisone 20 mg tablet 20 mg PO BID Qty: 10 0RF valacyclovir [Valtrex] 1 gram tablet 1,000 mg PO TID Qty: 7 0RF Artificial Tears (cmc) 1 % drops 1 drp ophthalmic (eye) TID Qty: 15 0RF No Action ibuprofen 400 mg tablet 400 mg PO Q8H PRN (Reason: pain) Qty: 10 0RF Referrals: [facility] [Primary Care Provider, Medical] Americo Sweet MD [Physician, Neurology] Print Language: Albanian
--- OUTSIDE RECORDS SUMMARY | 2025-06-25 09:26 | XMS_ITS | Encounter Summary ---
Author Organization [employer] Address [address] [facility] [address] [facility] [address] 7t [place] [address] Care Team Providers Care Screen Cutter And Trimmer Name Role Phone Felecia Good MD Primary Care Pro vider Reason for Visit * Reason Comments Med Refill Encounter Details Date Type Department Care Team ([facility] st Contact Info) Description 06/18/2025 Refill [facility] 230 [place] [address] Martin Tanner MD [address] [place] [address] Psoriasis vulgaris Social History Tobacco Use Types Packs/Day Years [...] Care Team (Late st Contact Info) Description 07/04/2025 9:15 AM EST Office Visit [facility] [address] [place] [phone] Felecia Good MD [address] [place] [phone] 07/19/2025 3:00 PM EST Office Visit [facility] [address] [place] [address] [phone] Pretty Gong [address] [place] [phone] 07/26/2025 11:00 AM EST Office Visit [facility] [address] [place] [address] [phone] Pretty Gong [address] [place] [phone] documented as of this encounter Visit Diagnoses Diagnosis Psoriasis vulgaris Other psoriasis documented in this encounter Additional Health Concerns Assessment Noted Time PHQ-9 Depression Total Score: 2 11/10/19 24 10:19 AM EDT documented as of this encounter Care Teams Screen Cutter And Trimmer Relationship Specialty Start Date End Date Felecia Good MD [address] [place] [phone] PCP - General Internal Medicine 12/05/22 documented as of this encounter
--- OUTSIDE RECORDS SUMMARY | 2025-06-25 09:26 | XMS_ITS | Encounter Summary ---
Author Organization [employer] Address [address] [facility] 7t [place] [address] Care Team Providers Care Em Physician Name Role Phone Felecia Good MD Primary Care Pro vider Reason for Visit * Reason Comments Pre-visit Planning Pre-visit planning - LVM Encounter Details Date Type Department Care Team ([facility] st Contact Info) Description 06/23/2025 Patient Outreach [facility] [address] [place] [address] Felecia Good MD [address] [place] [address] Pre-visit Planning (Pre-visit planning - LVM ) Social History Tobacco Use Types Packs/Day Years [...] the past 12 months, has t he [employer], gas, oil or water [employer] threatened to shut off services in your home? No 05/07/2023 Depression Answer Date Recorded Patient Health Questionnaire-2 Score 1 11/10/2023 Sex and Gender Information Value Date Recorded Sex Assigned at Male 05/12/2022 10:18 AM EDT Legal Sex Male 10:18 AM EDT Gender Identity Male 05/12/2022 10:18 AM EDT Sexual Orientation Choose not to disclose 2021 10:18 AM EDT documented as of this encounter Progress Notes * Keisha Conti - 06/23/2025 2:37 PM EST CC Keisha Paris placed outbound call to patient to complete pre-visit planning. No answer at this time. Patient name and were not confirmed. CC left voicemail requesting return call. Direct contact information provided. documented in this encounter Plan of Treatment Upcoming Encounters Date Type Department Care Team (Late st Contact Info) Description 07/04/2025 9:15 AM EST Office Visit [facility] [address] [place] [address] [phone] Felecia Good MD 230 [place], [place] [phone] 07/19/2025 3:00 PM EST Office Visit [facility] [address] [place] [phone] Pretty Gong [address] [place] [address] 07/26/2025 11:00 AM EST Office Visit [facility] [address] [place] [phone] Pretty Gong [address] [place], [place] [phone] documented as of this encounter Visit Diagnoses Not on filedocumented in this encounter Additional Health Concerns Assessment Noted Time PHQ-9 Depression Total Score: 2 11/10/19 24 10:19 AM EDT documented as of this encounter Care Teams Em Physician Relationship Specialty Start Date End Date Felecia Good MD [address] [place] [address] PCP - General Internal Medicine 12/05/22 documented as of this encounter
--- OUTSIDE RECORDS SUMMARY | 2025-06-25 09:26 | XMS_ITS | Encounter Summary ---
Author Organization [employer] Address [address] [facility] [address]t [place] [address] Care Team Providers Care Sulfur Chloride Operator Name Role Phone Felecia Good MD Primary Care Pro vider Reason for Visit * Reason Comments Med Refill Encounter Details Date Type Department Care Team ([facility] st Contact Info) Description 10/12/[address] [facility] 230 [place], [place] [phone] Louie Mann MD 230 [place], [place] [phone] Social History Tobacco Use Types Packs/Day Years [...] Description 07/04/2025 9:15 AM EST Office Visit [facility] [address] [place] [phone] Felecia Good MD [address] [place] [phone] 07/19/2025 3:00 PM EST Office Visit [facility] [address] [place] [phone] Pretty Gong [address] [place] [phone] 07/26/2025 11:00 AM EST Office Visit [facility] [address] [place] [phone] Pretty Gong [address] [place] [address] [phone] documented as of this encounter Visit Diagnoses Not on filedocumented in this encounter Additional Health Concerns Assessment Noted Time PHQ-9 Depression Total Score: 2 11/10/19 24 10:19 AM EDT documented as of this encounter Care Teams Sulfur Chloride Operator Relationship Specialty Start Date End Date Felecia Good MD [address] [place] [phone] PCP - General Internal Medicine 12/05/22 documented as of this encounter
--- OUTSIDE RECORDS SUMMARY | 2025-06-25 09:26 | XMS_ITS | Encounter Summary ---
Author Organization [employer] Address 75 [facility] 7t [place] [address] Care Team Providers Care Powder Room Attendant Name Role Phone Felecia Good MD Primary Care Pro vider Reason for Visit * Reason Comments Med Refill Encounter Details Date Type Department Care Team ([facility] st Contact Info) Description 02/25/2025 Refill [facility] & [facility]EDS [address] [place], [place] [phone] Felecia Good MD [address] [place] [address] Social History Tobacco Use Types Packs/Day Years [...] Description 07/04/2025 9:15 AM EST Office Visit [facility] MEDICINE [address] [place] [phone] Felecia Good MD [address] [place] [address] 07/19/2025 3:00 PM EST Office Visit [facility] ADULT DENTAL [address] [place] [address] Pretty Gong [address] [place] [phone] 07/26/2025 11:00 AM EST Office Visit [facility] ADULT DENTAL [address] [place] [address] Pretty Gong [address] [place] [phone] documented as of this encounter Visit Diagnoses Not on filedocumented in this encounter Additional Health Concerns Assessment Noted Time PHQ-9 Depression Total Score: 2 11/10/19 24 10:19 AM EDT documented as of this encounter Care Teams Powder Room Attendant Relationship Specialty Start Date End Date Felecia Good MD [address] [place] [phone] PCP - General Internal Medicine 12/05/22 documented as of this encounter
--- OUTSIDE RECORDS SUMMARY | 2025-06-25 09:26 | XMS_ITS | Clinical Summary ---
Author Organization [employer] Address 75 [facility] 7t [place] [address] Care Team Providers Care Art Editor Name Role Phone Felecia Good MD Primary [...] 24 hr tabletIndicatio ns:Schizophreni a, unspecified type ([facility]) TAKE 1 TABLET DAILY, DO NOT BREAK, [...] 5 12:51 PM EST 03/17/20 25 Active dorzolamide-conner olol (Cosopt) 2-0.5 % ophthalmic solutionIndicat ions:Primary open angle glaucoma of both eyes, unspecified glaucoma stage Administer 1 drop into both eyes 2 times daily. 10 mL 5 5 11:45 AM EST 03/28/20 25 026 Active Ventolin HFA 108 [...] 025 Active acetaminophen (Tylenol) 500 MG tabletIndicatio ns:Chronic low back pain, unspecified back pain laterality, unspecified whether sciatica present Take 1 tablet (500 mg) by mouth every 6 (six) hours if needed for mild pain for up to 20 doses. 20 tablet 5 3:11 PM EST 06/12/20 25 Active triamcinolone (Kenalog) 0.1 % ointmentIndicat ions:Psoriasis vulgaris APPLY TOPICALLY TWICE DAILY 454 g 2 06/19/20 25 Active acetaminophen (Tylenol) 500 MG tabletIndicatio ns:Necrosis of dental pulp Take 1 tablet (500 mg) by mouth every 6 (six) hours if needed for mild pain for up to 20 doses. 20 tablet 09/07/19 25 025 Discontinued(R eorder (will not trigger notification to Pharmacy)) triamcinolone (Kenalog) 0.1 % ointmentIndicat ions:Psoriasis vulgaris Apply topically 2 times daily. 453.6 g 2 5 11:01 AM EST 03/17/20 25 025 Discontinued Active Problems Problem Noted [...] anxiety disorder 02/22/2013 History of substance abuse (CMS/HCC) 01/18/2013 Chronic back pain 12/07/2012 Assessment & Plan (06/13/2025 10:36 AM EST): Orders: XR Lumbar Spine 2-3 Views; Future baclofen (Lioresal) 10 MG tablet; Take 1 tablet (10 mg) by mouth 3 times daily. Referral to Physical Therapy; Future acetaminophen (Tylenol) 500 MG tablet; Take 1 tablet (500 mg) by mouth every 6 (six) hours if needed for mild pain for up to 20 doses. Resolved Problems Problem Noted Date Diagnosed Date Resolved Date Thoracic compression fracture 12/03/2012 11/10/2023 Assessment & Plan (09/02/2023 3:43 PM EST): Old. Order Xray Encounters Date Type Department Care Team Description 06/23/2025 Patient Outreach [facility] [address] [place] [phone] Felecia Good MD Pre-visit Planning (Pre-visit planning - LVM ) 06/18/2025 Refill [facility] [address] [place] [address] [phone] Martin Tanner MD Psoriasis vulgaris 06/13/2025 Results Follow-Up [facility] [address] [place] [address] [phone] Yancy Read NP XR Lumbar Spine 2-3 Views 06/12/2025 1:20 PM EST Office Visit [facility] [address] [place] [address] 56402 Yancy Read NP Chronic low back pain, unspecified back pain laterality, unspecified whether sciatica present (Primary Dx) 06/12/2025 Travel 06/03/2025 Refill [facility] [address] [place] [address] Felecia Good MD 05/19/2025 Refill [facility] [address] [place] [address] [phone] Carina Hatfield MD Schizophrenia, unspecified type (HCC) 05/15/2025 Refill [facility] [address] [place] [address] Felecia Good MD 05/08/2025 8:45 AM EDT Office Visit [facility]ULT [facility] [address] [place] [address] Pretty Gong Secondary dental caries (Primary Dx); Dental calculus; Periodontal disease; Gingival bleeding; Retained root of tooth after tooth extraction 05/02/2025 Outside Procedure [facility] [address] [place] [address] Jimbo Jungn, OD Presbyopia (Primary Dx) 04/28/2025 9:00 AM EDT Office Visit [facility] [address] [place] [address] Elvira Jung, OD Myopia of both eyes (Primary Dx) 04/26/2025 Refill [facility] [address] [place], [place] [phone] Felecia Good MD 04/20/2025 Patient Outreach [facility] [address] [place] [address] Felecia Good MD Pre-visit Planning (Pre-visit planning - LVM ) 04/12/2025 Refill [facility] [address] [place] [address] Carina Hatfield MD 04/11/2025 9:15 AM EDT Office Visit [facility] [address] [place] [address] Margarita Wei, OD Primary open angle glaucoma of both eyes, unspecified glaucoma stage (Primary Dx) 04/07/2025 Refill [facility] [address] [place] [phone] Felecia Good MD 03/28/2025 10:30 AM EDT Office Visit [facility] [address] [place] [address] Margarita Wei, OD Primary open angle glaucoma of both eyes, unspecified glaucoma stage (Primary Dx); Dry eyes, bilateral; Migraine aura without headache; Presbyopia 03/28/2025 Travel from Last 3 Months Immunizations Immunization [...] Description 07/04/2025 9:15 AM EST Office Visit [facility] [address] [place] [phone] Felecia Good MD [address] [place] [address] 07/19/2025 3:00 PM EST Office Visit [facility] [address] [place] [address] Pretty Gong [address] [place] [address] 07/26/2025 11:00 AM EST Office Visit [facility] [address] [place] [address] Pretty Gong [address] [place] [address]11 Health Maintenance Due Date Last Done Comments CT Colonography 1975 Colonoscopy 1975 Colorectal Cancer Screening 1975 FIT DNA/Cologuard 1975 FIT 1975 FOBT 1975 HIV Screening 1975 Sigmoidoscopy 1975 Disability Screening 1975 Alcohol/Substance Use Screening 1987 Family Planning (PISQ) 1990 Hepatitis B Vaccines (1 of 3 - 19+ 3-dose series) 1994 03/21/2008, 10/18/2007, 08/16/2006 DTaP/Tdap/Td Vaccines (1 - Tdap) 08/14/2006 08/13/2006 Pneumococcal Vaccine: 50+ Years (2 of 2 - PCV) 08/13/2007 08/13/2006 SDOH Screening 12/10/2023 12/09/2022 Depression Screening 11/09/2024 11/10/2023, 11/10/19 24 COVID-19 Vaccine (2 - season) 2025 08/17/2021 Influenza Vaccine (#1) 2025 4, 04/18/2010, 06/06/2008, Additional history exists RSV Patients and Patients Aged 60 years or older (1 - Risk 50-74 years 1-dose series) 2025 Zoster Vaccines (1 of 2) 2025 Lipid Panel 11/02/2025 11/02/2020 Dental Oral Exam 11/07/2025 05/08/2025, 11/05/2022 Dental Prophylaxis 11/07/2025 05/08/2025, 11/05/2022 Dental X-Ray: Bitewings 05/09/2026 05/08/2025, 11/05 Tobacco Screening 06/13/2026 06/13/2025 Dental X-Ray: Full Mouth 07/15/2026 07/14/2023, 10/12 Hepatitis C Screening Completed 11/02/2020 HIB Vaccines [...] PM EST Narrative 06/12/2025 2:52 PM EST [address] [address] XRay Report Signed Patient: Mushtaq Canchola MR#: [id number] : 1975 Acct:[id number] Age/Sex: 49 / M ADM Date: 06/12/25 Loc: HO.HHCX Attending Dr: Yancy Read Ordering Physician: Yancy Read Date of Service: 06/12/25 Procedure(s): XR lumbar spine 2-3V Accession Number(s): [id number] cc: Yancy Read Reason for Exam: pain [...] 06/12/25 1449 DD/ 1435 TD/TT: 06/12/25 1439 Casting Plug Assembler: Procedure Note Donotuseinterpreter, Image - 06/12/[address] [address] XRay Report Signed Patient: Mushtaq Canchola AMR#: [id number] : 1975Acct:[id number] Age/Sex: 49 / MADM Date: 06/12/25 Loc: HO.HHCX Attending Dr: Yancy Read Ordering Physician: Yancy Read Date of Service: 06/12/25 Procedure(s): XR lumbar spine 2-3V Accession Number(s): [id number] cc: Yancy Read Reason for Exam: pain [...] 06/12/25 1449 DD/ 1435 TD/TT: 06/12/25 1439 Casting Plug Assembler: Yancy Read BILLING REPRESENTATIVE IMG XR PROCEDURES Final Result * OCT, [...] a test for HCV RNA (test code 21756) is suggested. For additional information please refer to http://education.[employer]/faq/MXE41f8 (This link is being provided for informational/ educational purposes only.) 11/02/2020 8:01 AM EDT us Historical Provider MD HISTORICAL/NON ORDERABLE LABS Final Result Performing Organization Address City/State/[facility] Co de Phone Number [facility] Critical access hospital [place] [address] * (ABNORMAL) LIPID PANEL, STANDARD (11/02/2020 [...] equation in the estimation of LDL-C. Markie SS et al. ABBY. 2013;310(19): 1894-7675 (http://education.[employer]/faq/ANX907) Non-HDL Cholesterol 154(H) <130 mg/dL (calc) [facility] Comment: For patients with diabetes plus 1 major ASCVD risk factor, treating to a non-HDL-C goal of <100 mg/dL (LDL-C of <70 mg/dL) is considered a therapeutic option. Triglycerides 92 <150 mg/dL [facility] 11/02/2020 8:01 AM EDT us Historical Provider LAB BLOOD ORDERABLES Lissa guadarrama Result [facility] [address] [place] [address], from Last 3 Months or Most Recently Relevant to Health Maintenance Insurance [facility] C3 DENTAL-[facility] MEDICAID STAND ADULT Care Teams Art Editor Relationship Specialty Start Date End Date Felecia Good MD [address] [place] [address] [phone] PCP - General Internal Medicine 12/05/22
--- OUTSIDE RECORDS SUMMARY | 2025-06-25 09:26 | XMS_ITS | Encounter Summary ---
Author Organization [employer] Address 75 [facility] 7t [place] [address] Care Team Providers Care Chemical Applicator Name Role Phone Felecia Good MD Primary Care Pro vider Reason for Visit * Reason Onset Date Comments Appointment Request 11/22/2024 Encounter Details Date Type Department Care Team ([facility] st Contact Info) Description 11/22/2024 Telephone [facility] [address] [place] [address] Felecia Good MD [address] [place] [address] Appointment Request Social History Tobacco Use Types [...] the past 12 months, has t he [employer], gas, oil or water company threatened to [...] Description 07/04/2025 9:15 AM EST Office Visit [facility] [address] [place] [phone] Felecia Good MD [address] [place] [address] 07/19/2025 3:00 PM EST Office Visit [facility] ADULT DENTAL [address] [place] [address] Pretty Gong [address] [place] [address] 07/26/2025 11:00 AM EST Office Visit [facility] ADULT [facility]ENT[facility] [address] [place] [address] Pretty Gong [address] [place] [address] documented as of this encounter Visit Diagnoses Not on filedocumented in this encounter Additional Health Concerns Assessment Noted Time PHQ-9 Depression Total Score: 2 11/10/19 24 10:19 AM EDT documented as of this encounter Care Teams Chemical Applicator Relationship Specialty Start Date End Date Felecia Good MD [address] [place] [address] PCP - General Internal Medicine 12/05/22 documented as of this encounter
--- OUTSIDE RECORDS SUMMARY | 2025-06-25 09:26 | XMS_ITS | Encounter Summary ---
Author Organization [employer] Address [address] [facility] [address] [place] [address] Care Team Providers Care Sales And Marketing Representative Name Role Phone Felecia Good MD Primary Care Pro vider Reason for Visit * Reason Comments Med Refill Encounter Details Date Type Department Care Team ([facility] st Contact Info) Description 12/27/2024 Refill [facility] [address] [place], [place] [phone] Tod Pierce MD [address] [place], [place] [phone] Social History Tobacco Use Types Packs/Day Years [...] Description 07/04/2025 9:15 AM EST Office Visit [facility] [address] [place] [phone] Felecia Good MD [address] [place] [address] 07/19/2025 3:00 PM EST Office Visit [facility] ADULT DENTAL [address] [place] [phone] Pretty Gong [address] [place] [address] [phone] 07/26/2025 11:00 AM EST Office Visit [facility] ADULT DENT[facility] [address] [place] [phone] Pretty Gong [address] [place] [address] [phone] documented as of this encounter Visit Diagnoses Not on filedocumented in this encounter Additional Health Concerns Assessment Noted Time PHQ-9 Depression Total Score: 2 11/10/19 24 10:19 AM EDT documented as of this encounter Care Teams Sales And Marketing Representative Relationship Specialty Start Date End Date Felecia Good MD [address] [place] [address] [phone] PCP - General Internal Medicine 12/05/22 documented as of this encounter
--- OUTSIDE RECORDS SUMMARY | 2025-06-25 09:26 | XMS_ITS | Encounter Summary ---
Author Organization [employer] Address 75 [facility] 7t [place] [address] Care Team Providers Care Fisher Terrapin Name Role Phone Felecia Good MD Primary Care Pro vider Reason for Visit * Reason Onset Date Comments Med Refill 11/22/2024 Encounter Details Date Type Department Care Team (Late st Contact Info) Description 11/22/2024 Telephone [facility] [address] [place] [address] Felecia Good MD [address] [place], [place] [phone] Med Refill Social History Tobacco Use Types [...] the past 12 months, has t he [employer], gas, oil or water [employer] threatened to shut off services in your [...] 100 MG capsule To be sent to: [facility] documented in this encounter Plan of Treatment Upcoming Encounters Date Type Department Care Team (Late st Contact Info) Description 07/04/2025 9:15 AM EST Office Visit [facility] MED[facility] [address] [place] [phone] Felecia Good MD [address] [place] [address] 07/19/2025 3:00 PM EST Office Visit [facility] ADULT DENTAL [address] [place] [address] Pretty Gong [address] [place] [address] 07/26/2025 11:00 AM EST Office Visit [facility] ADULT DENTAL [address] [place] [address] Pretty Gong [address] [place] [address] documented as of this encounter Visit Diagnoses Not on filedocumented in this encounter Additional Health Concerns Assessment Noted Time PHQ-9 Depression Total Score: 2 11/10/19 24 10:19 AM EDT documented as of this encounter Care Teams Fisher Terrapin Relationship Specialty Start Date End Date Felecia Good MD [address] [place] [address] PCP - General Internal Medicine 12/05/22 documented as of this encounter
--- OUTSIDE RECORDS SUMMARY | 2025-06-25 09:26 | XMS_ITS | Encounter Summary ---
Author Organization [employer] Address [address] [facility] [address] 7[address] [place] [address] Care Team Providers Care Commercial Litigation Attorney Name Role Phone Felecia Good MD Primary Care Pro vider Reason for Visit * Reason Comments Med Refill Encounter Details Date Type Department Care Team ([facility] st Contact Info) Description 07/31/2023 Refill [facility] [address] [place], [place] [phone] Louie Mann MD [address] [place], [place] [phone] Social History Tobacco Use Types Packs/Day Years [...] Description 07/04/2025 9:15 AM EST Office Visit [facility] [address] [place] [address] Felecia Good MD [address] [place] [phone] 07/19/2025 3:00 PM EST Office Visit [facility] [address] [place] [address] Gaston Gongaris [address] [place] [address] 07/26/2025 11:00 AM EST Office Visit [facility] [address] [place] [address] Gaston Gongaris [address] [place] [address] documented as of this encounter Visit Diagnoses Not on filedocumented in this encounter Additional Health Concerns Assessment Noted Time PHQ-9 Depression Total Score: 16 12/09/2 023 9:23 AM EDT documented as of this encounter Care Teams Commercial Litigation Attorney Relationship Specialty Start Date End Date Felecia Good MD [address] [place] [address] [phone] PCP - General Internal Medicine 12/05/22 documented as of this encounter
[2025-06-25 09:27] LABS: MANUAL DIFF FLAG NO
--- OUTSIDE RECORDS SUMMARY | 2025-06-25 09:27 | XMS_ITS | Encounter Summary ---
Author Organization [employer] Address 75 [facility] 7t [place] [address] Care Team Providers Care Drag Down Name Role Phone Francine Andrews Catherine ADVANCED PRACTICE NURSE PSYCHOTHERAPIST Primary Care Provider Felecia Gillespie MD Primary Care Pro vider Encounter Details Date Type Department Care Team (Late st Contact Info) Description 10/03/[address] [facility] [address] [place] [address] Marlen Batista LPN Social History Tobacco Use [...] Description 07/04/2025 9:15 AM EST Office Visit [facility] [address] [place] [phone] Felecia Good MD [address] [place] [phone] 07/19/2025 3:00 PM EST Office Visit [facility] [address] [place] [phone] Pretty Gong [address] [place] [address] 07/26/2025 11:00 AM EST Office Visit [facility] [address] [place] [address] Pretty Gong [address] [place] [address] documented as of this encounter Procedures Procedure Name Priority Date/Time Associated Diagnosis Comments HIGH SENSITIVITY TROPONIN I Routine 12/07/2022 6:55 PM EDT CBC WITH AUTO DIFFERENTIAL Routine 12/07/2022 6:55 PM EDT BASIC METABOLIC PANEL Routine 12/07/2022 6:55 PM EDT documented in this encounter Results * High Sensitivity Troponin I (12/07/2022 6:55 PM EDT) [facility] TROPONIN I HIGH SENSITIVITY <2.7 <3.5 - 35.0 ng/L [facility] Comment:The Booth high sens itivity Troponin-I results should beused in conjunction with other diagnostic information suchas ECG, clinical observations and information, and patientsymptoms to aid in the diagnosis of NE. 12/07/2022 6:55 PM EDT 12/07/2022 6:57 PM EDT [facility] External Provider LAB BLO OD ORDERABLES Final Result [facility] [address] [place] [address] [phone] * Basic Metabolic Panel (12/07/2022 6:55 PM EDT) Pathologist [facility] Sodium 140 135 - 145 mmol/L [facility] Potassium 4.2 3.3 - 5.1 mmol/L [facility] Chloride 106 96 - 108 mmol/L [facility] Carbon Dioxide 25 22 - 29 mmol/L [facility] Anion Gap 13 12 - 20 [facility] Urea Nitrogen (BUN) 11 9 - 16 mg/dL [facility] Creatinine, Serum 1.03 0.5 - 1.4 mg/dL [facility] Creatinine Clr Calc Pharmacy 121.0 [facility] Comment:eGFR (calculated fro m the MDRD study equation) and eCrCl(calculated from the Cockcroft-Gault equation) are based ondifferent parameters and may not yield comparable results.If eCrCl result is absurd, please check patient'sheight/weight. Estimated Glomerular Filt Rate >60 [facility] Comment:NOTE: For -Am erican individuals, multiply the result by 1.210.Chronic Kidney Disease: Estimated GFR < 60 mL/min/1.12b4Powcfs Kidney Disease: Estimated GFR < 15 mL/min/1.73m2 Glucose 100 60 - 115 mg/dL [facility] Calcium 9.6 8.4 - 10.2 mg/dL [facility] 12/07/2022 6:55 PM EDT 12/07/2022 6:57 PM EDT us [facility] External Provider LAB BLO OD ORDERABLES Final Result [facility] [address] [place] [phone] * (ABNORMAL) CBC auto differential (12/07/2022 6:55 PM EDT) White Blood Count 10.0 4.8 - 10.8 X10*3/uL [facility] Red Blood Count 4.74 4.60 - 5.80 X10*6/uL [facility] Hemoglobin 14.7 14.0 - 18.0 g/dl [facility] Hematocrit 42.6 42.0 - 52.0 % [facility] Mean Corpuscular Volume 89.9 80.0 - 98.0 fL [facility] Mean Corpuscular Hemoglobin 31.0 27.0 - 33.0 pg [facility] Mean Corpuscular HGB Conc 34.5 31.0 - 36.0 g/dl [facility] Red Cell Distribution Width 12.4 11.0 - 16.0 % [facility] Platelet Count 325 160 - 400 X10*3/uL [facility] Mean Platelet Volume 10.3 9.4 - 12.4 fL [facility] Neutrophils Percent Auto 75.3(H) 45 - 73 % [facility] Imm Gran Pct Auto 0.3 0.0 - 0.4 % [facility] Lymphocytes Percent Auto 16.8(L) 20 - 40 % [facility] Monocytes Percent Auto 6.7 2 - 11 % [facility] Eosinophils Percent Auto 0.3 0 - 4 % [facility] Basophils Percent Auto 0.6 0 - 2 % [facility] NRBC Pct Auto 0.0 0.0 - 0.2 /100WBC [facility] Neutrophils Absolute Auto 7.5 2.0 - 8.3 x10*3/uL [facility] Imm Gran Abs Auto 0.03 0.00 - 0.03 X10*3/uL [facility] Lymphocytes Absolute Auto 1.7 1.2 - 4.9 X10*3/uL [facility] Monocytes Absolute Auto 0.7 0.1 - 1.2 X10*3/uL [facility] Eosinophils Absolute Auto 0.0 0.0 - 0.4 X10*3/uL [facility] Basophils Absolute Auto 0.1 0.0 - 0.2 X10*3/uL [facility] NRBC Abs Auto 0.000 0.0 - 0.012 X10*3/uL [facility] 12/07/2022 6:55 PM EDT 12/07/2022 6:57 PM EDT us [facility] External Provider LAB BLO OD ORDERABLES Final Result [facility] [address] [place] [address] [phone] documented in this encounter Visit Diagnoses Not on filedocumented in this encounter Care Teams Drag Down Relationship Specialty Start Date End Date Francine Andrews FNP PCP - General Family Medicine 01/10/22 12/04/22 Felecia Good MD [address] [place] [phone] PCP - General Internal Medicine 12/05/22 documented as of this encounter
--- OUTSIDE RECORDS SUMMARY | 2025-06-25 09:27 | XMS_ITS | Encounter Summary ---
Author Organization [employer] Address 75 [facility] 7t [place] [address] Care Team Providers Care Direct Marketing Coordinator Name Role Phone Francine Andrews Catherine HAND BASEBALL SEWER Primary Care Provider Felecia Gillespie MD Primary Care Pro vider Encounter Details Date Type Department Care Team (Late Contact Info) Description 11/18/2022 Abstract [facility] ADULT [facility] [address] [place], [place] [phone] Pretty Gong [address] [place] [address] Social History Tobacco Use Types Packs/Day Years [...] Department Care Team (Late Contact Info) Description 07/04/2025 9:15 AM EST Office Visit [facility] MED[facility]INE [address] [place], [place] [phone] Felecia Good MD [address] [place] [address] 07/19/2025 3:00 PM EST Office Visit [facility] ADULT [facility]AL [address] [place] [address] Pretty Gong [address] [place] [address] 07/26/2025 11:00 AM EST Office Visit [facility] ADULT [facility] [address] [place] [address] Pretty Gong [address] [place] [address] documented as of this encounter Visit Diagnoses Not on filedocumented in this encounter Care Teams Direct Marketing Coordinator Relationship Specialty Start Date End Date Francine Andrews FNP PCP - General Family Medicine 01/10/22 12/04/22 Felecia Good MD [address] [place] [address] PCP - General Internal Medicine 12/05/22 documented as of this encounter
--- OUTSIDE RECORDS SUMMARY | 2025-06-25 09:27 | XMS_ITS | Encounter Summary ---
Author Organization [employer] Address 75 [facility] [place] 7t [place] [address] Care Team Providers Care Print Color Matcher Name Role Phone Felecia Good MD Primary Care Pro vider Reason for Visit * Reason Comments Med Refill Encounter Details Date Type Department Care Team ([facility] st Contact Info) Description 06/03/2025 Refill [facility] [address] [place], [place] [phone] Felecia Good MD [address] [place] [address] Social History Tobacco Use Types Packs/Day Years [...] Description 07/04/2025 9:15 AM EST Office Visit [facility] [address] [place] [phone] Felecia Good MD [address] [place] [phone] 07/19/2025 3:00 PM EST Office Visit [facility] ADULT DENTAL [address] [place] [address] [phone] Pretty Gong [address] [place] [phone] 07/26/2025 11:00 AM EST Office Visit [facility] ADULT DENTAL [address] [place] [phone] Pretty Gong [address] [place] [address] documented as of this encounter Visit Diagnoses Not on filedocumented in this encounter Additional Health Concerns Assessment Noted Time PHQ-9 Depression Total Score: 2 11/10/19 24 10:19 AM EDT documented as of this encounter Care Teams Print Color Matcher Relationship Specialty Start Date End Date Felecia Good MD [address] [place] [phone] PCP - General Internal Medicine 12/05/22 documented as of this encounter
--- OUTSIDE RECORDS SUMMARY | 2025-06-25 09:27 | XMS_ITS | Encounter Summary ---
Author Organization [employer] Address 75 [facility] 7t [place] [address] Care Team Providers Care Doctor Of Nursing Practice Name Role Phone Felecia Good MD Primary Care Pro vider Reason for Visit * Reason Comments Med Refill Encounter Details Date Type Department Care Team (Late Contact Info) Description 01/09/2023 Refill [facility] [address] [place] [address] [phone] Kenny Han FNP Rash Social History Tobacco [...] Description 07/04/2025 9:15 AM EST Office Visit [facility] [address] [place] [address] [phone] Felecia Good MD [address] [place], [place] [phone] 07/19/2025 3:00 PM EST Office Visit [facility] ADULT DENTAL [address] [place] [address] Pretty Gong [address] [place] [address] 07/26/2025 11:00 AM EST Office Visit [facility] ADULT [facility] 230 [place] [address] Pretty Gong [address] [place] [address] documented as of this encounter Visit Diagnoses Diagnosis Rash Rash and other nonspecific skin eruption documented in this encounter Additional Health Concerns Assessment Noted Time PHQ-9 Depression Total Score: 16 12/09/ 023 9:23 AM EDT documented as of this encounter Care Teams Doctor Of Nursing Practice Relationship Specialty Start Date End Date Felecia Good MD [address] [place] [address] PCP - General Internal Medicine 12/05/22 documented as of this encounter
--- OUTSIDE RECORDS SUMMARY | 2025-06-25 09:27 | XMS_ITS | Encounter Summary ---
Author Organization [employer] Address [address] [place] [address] 7t [place] [address] Care Team Providers Care Twister Tender Paper Name Role Phone Francine Andrews [facility] Primary Care Provider Felecia Gillespie MD Primary Care Pro vider Reason for Visit * Reason Onset Date Comments triage 07/15/2022 Encounter Details Date Type Department Care Team ([facility] Contact Info) Description 07/15/2022 Telephone [facility] [address] [place] [phone] Francine Andrews FNP triage Social History Tobacco [...] Upcoming Encounters Date Type Department Care Team ([facility] Contact Info) Description 07/04/2025 9:15 AM EST Office Visit [facility] [address] [place] [phone] Felecia Good MD [address] [place] [address] [phone] 07/19/2025 3:00 PM EST Office Visit [facility] ADULT DENTAL [address] [place] [address] Pretty Gong [address] [place] [address] 07/26/2025 11:00 AM EST Office Visit [facility] ADULT DENTAL 230 [place] [address] Pretty Gong [address] [place] [address] documented as of this encounter Visit Diagnoses Not on filedocumented in this encounter Care Teams Twister Tender Paper Relationship Specialty Start Date End Date Francine Andrews FNP PCP - General Family Medicine 01/10/22 12/04/22 Felecia Good MD [address] [place] [address] PCP - General Internal Medicine 12/05/22 documented as of this encounter
--- OUTSIDE RECORDS SUMMARY | 2025-06-25 09:27 | XMS_ITS | Encounter Summary ---
Author Organization [employer] Address 75 [facility] 7t [place] [address] Care Team Providers Care Production Wood Craftsman Name Role Phone Francine Andrews Catherine COPRA SAMPLER Primary Care Provider Felecia Gillespie MD Primary Care Pro vider Encounter Details Date Type Department Care Team (Late Contact Info) Description 11/20/[address] [facility] ADULT DENTAL [address] [place], [place] [phone] Pretty Gong [address] [place] [address] Social History Tobacco Use Types Packs/Day Years [...] 07/04/2025 9:15 AM EST Office Visit [facility] MEDICINE [address] [place], [place] [phone] Felecia Good MD 230 [place] [address] 07/19/2025 3:00 PM EST Office Visit [facility] ADULT DENTAL [address] [place] [address] Pretty Gong [address] [place] [address] 07/26/2025 11:00 AM EST Office Visit [facility] ADULT DENTAL [address] [place] [address] Pretty Gong [address] [place] [address] documented as of this encounter Visit Diagnoses Not on filedocumented in this encounter Care Teams Production Wood Craftsman Relationship Specialty Start Date End Date Francine Andrews FNP PCP - General Family Medicine 01/10/22 12/04/22 Felecia Good MD 230 [place] [address] PCP - General Internal Medicine 12/05/22 documented as of this encounter
--- OUTSIDE RECORDS SUMMARY | 2025-06-25 09:27 | XMS_ITS | Encounter Summary ---
Author Organization [employer] Address [address] [facility] [address] 7t [place] [address] Care Team Providers Care Child Care Team Lead Name Role Phone Felecia Good MD Primary Care Pro vider Reason for Visit * Reason Comments Med Refill Encounter Details Date Type Department Care Team (Late st Contact Info) Description 01/01/2023 Refill [facility] [address] [place] [address] [phone] Kenny Han FNP Rash Social History Tobacco [...] Description 07/04/2025 9:15 AM EST Office Visit [facility] [address] [place] [address] [phone] Felecia Good MD 230 [place] [address] 07/19/2025 3:00 PM EST Office Visit [facility] ADULT DENTAL [address] [place] [address] Pretty Gong [address] [place] [address] 07/26/2025 11:00 AM EST Office Visit [facility] ADULT DENTAL 230 [facility] [place] [address] Pretty Gong [address] [place] [address] documented as of this encounter Visit Diagnoses Diagnosis Rash Rash and other nonspecific skin eruption documented in this encounter Additional Health Concerns Assessment Noted Time PHQ-9 Depression Total Score: 16 12/09/ 023 9:23 AM EDT documented as of this encounter Care Teams Child Care Team Lead Relationship Specialty Start Date End Date Felecia Good MD [address] [place] [address] PCP - General Internal Medicine 12/05/22 documented as of this encounter
--- OUTSIDE RECORDS SUMMARY | 2025-06-25 09:27 | XMS_ITS | Encounter Summary ---
Author Organization [employer] Address [address] [facility] [address] 7t [place] [address] Care Team Providers Care Option Trader Name Role Phone Felecia Good MD Primary Care Pro vider Reason for Visit * Reason Comments Med Refill Encounter Details Date Type Department Care Team (Late st Contact Info) Description 05/07/2023 Refill [facility] [address] [place], [place] [phone] Francine Andrews, DANIA Pain Social History Tobacco [...] Description 07/04/2025 9:15 AM EST Office Visit [facility] [address] [place] [address] Felecia Good MD [address] [place] [address] 07/19/2025 3:00 PM EST Office Visit [facility] ADULT DENTAL [address] [place] [address] Farideh, Pretty [address] [place] [address] 07/26/2025 11:00 AM EST Office Visit [facility] ADULT DENTAL [address] [place] [address] Farideh Pretty [address] [place] [address] documented as of this encounter Visit Diagnoses Diagnosis Pain Generalized pain documented in this encounter Additional Health Concerns Assessment Noted Time PHQ-9 Depression Total Score: 16 023 9:23 AM EDT documented as of this encounter Care Teams Option Trader Relationship Specialty Start Date End Date Felecia Good MD [address] [place] [phone] PCP - General Internal Medicine 12/05/22 documented as of this encounter
--- OUTSIDE RECORDS SUMMARY | 2025-06-25 09:27 | XMS_ITS | Encounter Summary ---
Author Organization [employer] Address [address] [facility] [address] 7t [place] [address] Care Team Providers Care Textile Dyer Name Role Phone Felecia Good MD Primary Care Pro vider Encounter Details Date Type Department Care Team (Late st Contact Info) Description 04/22/2023 Orders Only [facility] [address] [place], [place] [phone] Louie Mann MD 230 [place] [address] Rash (Primary Dx) Social History Tobacco Use [...] Description 07/04/2025 9:15 AM EST Office Visit [facility] MEDICINE [address] [place] [phone] Felecia Good MD [address] [place] [address] 07/19/2025 3:00 PM EST Office Visit [facility] ADULT DENTAL [address] [place] [address] Gaston Gongaris [address] [place] [address] 07/26/2025 11:00 AM EST Office Visit [facility] ADULT DENTAL [address] [place] [address] Gaston Gongaris [address] [place] [address] documented as of this encounter Visit Diagnoses Diagnosis Rash- Primary Rash and other nonspecific skin eruption documented in this encounter Additional Health Concerns Assessment Noted Time PHQ-9 Depression Total Score: 16 023 9:23 AM EDT documented as of this encounter Care Teams Textile Dyer Relationship Specialty Start Date End Date Felecia Good MD [address] [place] [phone] PCP - General Internal Medicine 12/05/22 documented as of this encounter
--- OUTSIDE RECORDS SUMMARY | 2025-06-25 09:27 | XMS_ITS | Encounter Summary ---
Author Organization [employer] Address 75 [facility] 7t [place] [address] Care Team Providers Care Smoke Chaser Name Role Phone Felecia Good MD Primary Care Pro vider Reason for Visit * Reason Comments Med Refill Encounter Details Date Type Department Care Team ([facility] st Contact Info) Description 11/23/2023 Refill [facility] 230 [place], [place] [phone] Felecia Good MD 230 [place] [address] Social History Tobacco Use Types Packs/Day Years [...] 07/04/2025 9:15 AM EST Office Visit [facility] MED[facility] [address] [place] [phone] Felecia Good MD [address] [place] [address] 07/19/2025 3:00 PM EST Office Visit [facility] ADULT DENTAL [address] [place] [phone] Pretty Gong [address] [place] [address] 07/26/2025 11:00 AM EST Office Visit [facility] ADULT DENT[facility] [address] [place] [phone] Pretty Gong [address] [place] [address] documented as of this encounter Visit Diagnoses Not on filedocumented in this encounter Additional Health Concerns Assessment Noted Time PHQ-9 Depression Total Score: 2 11/10/19 24 10:19 AM EDT documented as of this encounter Care Teams Smoke Chaser Relationship Specialty Start Date End Date Felecia Good MD [address] [place] [address] PCP - General Internal Medicine 12/05/22 documented as of this encounter
--- NOTE | 2025-06-25 09:34 | PC.NURSE ---
Patient stating he is allergic to contrast dye- in the past when he had it he vommited and has testicle pain x [address] aware. MRIU screening form completed using security services manager
[2025-06-25 09:37] LABS: Hematocrit 42.2 % (42.0-52.0); Hemoglobin 14.9 g/dl (14.0-18.0); Imm Gran Abs Auto 0.03 X10*3/uL (0.00-0.03); Imm Gran Pct Auto 0.4 % (0.0-0.4); Lymphocytes Absolute Auto 2.2 X10*3/uL (1.2-4.9); Mean Corpuscular HGB Conc 35.3 g/dl (31.0-36.0); Mean Corpuscular Hemoglobin 31.0 pg (27.0-33.0); Mean Corpuscular Volume 87.7 fL (80.0-98.0); NRBC Abs Auto 0.000 X10*3/uL (0.0-0.012); NRBC Pct Auto 0.0 /100WBC (0.0-0.2); Platelet Count 283 X10*3/uL (160-400); Red Blood Count 4.81 X10*6/uL (4.60-5.80); White Blood Count 7.7 X10*3/uL (4.8-10.8)
[2025-06-25 09:42] LABS: Anion Gap 13 (12-20); Blood Urea Nitrogen 15 mg/dL (9-16); Calcium 9.6 mg/dL (8.4-10.2); Carbon Dioxide 23 mmol/L (22-29); Chloride 104 mmol/L (96-108); Creatinine Clr Calc Pharmacy 126.1; Estimated Glomerular Filt Rate > 60; Potassium 3.7 mmol/L (3.3-5.1); Sodium 136 mmol/L (135-145)
[2025-06-25 09:51] LABS: Troponin-I High Sensitivity < 2.7 ng/L (<3.5-35.0)
[2025-06-25 09:56] LABS: INTERNATIONAL NORM RATIO 1.0 (0.9-1.1); Prothrombin Time 12.7 SEC (11.2-13.5)
[2025-06-25] MEDS: iohexoL 350 MG/ML 100 ML INFUS..BTL IV (10:23)
[2025-06-25 11:01] VITALS: BP 132/73; PULSE 89; RESP 19; TEMP 36.8; O2SAT 97
[2025-06-25 14:23] VITALS: BP 119/74; PULSE 110; RESP 17; TEMP 37; O2SAT 95
[2025-06-25 15:16] VITALS: BP 119/74; PULSE 110; RESP 17; TEMP 37; O2SAT 95
== END 2025-06-25 15:16 | disposition home or self-care (01) ==
PROVIDERS: Emergency Provider Emergency Medicine
DX: R20.0 Anesthesia of skin (principal); G51.0 Bell's palsy
CPT/HCPCS: 36415; 70496; 70498; 70551; 80048; 84484; 85025; 85610; 99284; 99285; Q9967

== ENCOUNTER → 2025-06-25 09:10 | Outpatient (BNV) | payer MEDICAID, SELFPAY | PROVIDERS: Emergency Provider Emergency Medicine; Visit Provider Radiology Vascular & Interventional Radiology | DX: R53.1 Weakness (principal); R20.2 Paresthesia of skin; J32.0 Chronic maxillary sinusitis | CPT/HCPCS: 70496; 70498; 70551 ==